=== PATIENT | female | born 1955 | race Caucasian/White ===

== ENCOUNTER 2024-08-13 08:30 | Outpatient (CLI) | payer MEDICARE, SELFPAY ==
--- NOTE | ~2024-08-13 | US_ITS ---
EXAMINATION: US arterial duplex LE DATE: 08/13/2024 09:26 INDICATION: Peripheral vascular disease TECHNIQUE: Grayscale ultrasound images without and with compression and Doppler ultrasound images of the bilateral lower extremity veins were obtained. COMPARISON: None. FINDINGS: Peak systolic velocity (cm/sec) ; waveform Right lower extremity External iliac artery: 115; triphasic Common femoral artery: 213; triphasic Profunda femoral artery: 175; biphasic Superficial femoral artery: 188; biphasic Popliteal artery: 106; biphasic Anterior tibial artery: 77; biphasic Posterior tibial artery: 77; triphasic Peroneal artery: 46; triphasic Dorsalis pedis: 73; biphasic Peak systolic velocity (cm/sec) ; waveform Left lower extremity External iliac artery: 140; triphasic Common femoral artery: 186; triphasic Profunda femoral artery: 141; biphasic Superficial femoral artery: 136; triphasic Popliteal artery: 130; biphasic Anterior tibial artery: 22; biphasic Posterior tibial artery: 86; biphasic Peroneal artery: 30; biphasic Dorsalis pedis: 83; biphasic IMPRESSION: Elevated peak systolic velocity within the bilateral common femoral arteries, without an altered wave form. Triphasic waveforms throughout the thighs with biphasic waveforms in the bilateral lower extremities Reviewed, dictated and finalized at location A. IMPRESSION: Elevated peak systolic velocity within the bilateral common femoral arteries, w ithout an altered waveform. Triphasic waveforms throughout the thighs with biphasic waveforms in the bilate ral lower extremities
--- OUTSIDE RECORDS SUMMARY | 2024-08-13 08:37 | XMS_ITS | Data Portability ---
Author Organization [facility] Infusion Resource, Main Office Address [address] [place] [address] Assessment No assessment recorded. Plan of Treatment Reminders Order Date Submit Date Provider Last Modified By Organization Details Last Modified Time Details Appointments None recorded. Lab vitamin D, 25-hydroxy, total, serum 2024 025 [facility], [address] [place], [address], 5 02:15:25 vitamin B12, serum 2024 025 [facility], [address] [place], [address], 5 02:15:21 magnesium, serum or plasma 2024 025 [facility], [address] [place], [address], 5 02:15:18 lipid panel, serum 2024 025 [facility], [address] [place], [address], 5 02:15:16 CMP, serum or plasma 2024 025 [facility], [address] [place], [address], 5 02:15:19 CBC w/ auto diff 2024 025 [facility], [address] [place], [address], 5 02:15:20 TSH, serum or plasma 2024 025 [facility], [address] [place], [address], 5 02:15:24 T4, free, serum 2024 025 [facility], [address] [place], [address], 5 02:15:22 vitamin D, 25-hydroxy, total, serum [email or web address] [place] [address] Outpatient Lab, [address] [place], [address], 4 10:41:22 magnesium, serum or plasma 2023 [facility], [address] [place], [address], 4 12:17:18 vitamin B12, serum 2023 024 [facility], [address] [place], [address], 4 13:19:04 CBC w/ auto diff 2023 024 [facility], [address] [place], [address], 4 11:46:17 CMP, serum or plasma 2023 024 [facility], [address] [place], [address], 4 12:17:13 lipid panel, serum 2023 024 [facility], [address] [place], [address], 4 12:17:16 TSH, serum or plasma 2023 [facility], [address] [place], [address], 4 12:46:15 T4, free, serum 2023 [facility], [address] [place], [address], 4 12:36:32 ESR (erythrocyt e sedimentati on rate), blood 2023 [facility], [address] [place], [address], 4 11:45:41 vitamin D, 25-hydroxy, total, serum [email or web address] [place] [address] Outpatient Lab, [address] [place], [address], 4 09:40:26 magnesium, serum or plasma 2023 [facility], [address] [place], [address], 4 13:30:59 vitamin B12, serum 2023 [facility], [address] [place], [address], 4 12:39:46 CBC w/ auto diff 2023 [facility], [address] [place], [address], 4 11:17:14 CMP, serum or plasma 2023 [facility], [address] [place], [address], 4 13:30:50 lipid panel, serum 2023 024 [facility], [address] [place], [address], 4 13:30:55 TSH, serum or plasma 2023 024 [facility], [address] [place], [address], 4 14:49:38 T4, free, serum 2023 024 [facility], [address] [place], [address], 4 13:43:11 vitamin D, 25-hydroxy, total, serum [id number] [place] [address] Outpatient Lab, [address] [place], [address], 3 17:49:12 vitamin B12, serum 2022 023 [facility], [address] [place], [address], 3 12:07:50 magnesium, serum or plasma 2022 023 [facility], [address] [place], [address], 3 10:23:01 lipid panel, serum 2022 023 [facility], [address] [place], [address], 3 10:22:41 CMP, serum or plasma 2022 023 [facility], [address] [place], [address], 3 10:22:51 CBC w/ auto diff 2022 023 [facility], [address] [place], [address], 3 10:05:39 TSH, serum or plasma 2022 023 [facility], [address] [place] [address], [address], 3 11:02:15 T4, free, serum 2022 023 [facility], [address] [place] [address], [address], 3 10:42:42 vitamin B12, serum [email or web address] Out[facility] Lab, [address] [place] [address], [address], 3 15:32:53 magnesium, serum or plasma [id number] [facility] [address] [facility], [address] [place] [address], [address], 3 15:32:53 vitamin D, 25-hydroxy, total, serum [id number] [facility], [address] [place] [address], [address], 3 15:32:53 lipid panel, serum 2022 023 [email or web address] [facility] Out[facility] Lab, [address] [place], [address], 3 15:21:53 CMP, serum or plasma [id number] [facility], [address] [place] [address], [address], 3 15:32:53 Referral None recorded. Procedures None recorded. Surgeries None recorded. Imaging None recorded. Medication Orders None recorded. Patient TargetsNo targets recorded. Patient Instructions Encounter Date Encounter Id Patient Instructions Last Modified By Organization Details Last Modified Time 06/06/2022 [id number] Follow-up hypertension -hyperlipidemia-JS D -osteopenia. Clinically stable. Will check blood work consisting of a CMP, lipid,B12, Magnesium vitamin-D level. Recheck back in six months. [email or web address] Not available 06/06/2022 11:27:02 12/05/2022 [id number] Follow-up hypertension, hyperlipidemia, GERD as well as obesity class two. Clinically stable overall is doing well. Has had some intermittent pain and discomfort in the right jones area. This sounds more like muscular cramping. Does take the rosuvastatin. Has also been doing some stretching exercises which may be an aggravating factor. Otherwise been doing well. Will check blood work consisting of CBC, CMP, lipid, thyroid,B12, Magnesium and vitamin-D level. Instruct the patient to try to take some magnesium supplementation to see if there is any improvement. Continue on current medications recheck back in six months.FDA recommendations of a influenza, RSV, COVID, pneumococcal immunizations strongly advised. Portions of the record may have been created with voice recognition software. Occasional wrong-word or [id number]-[id number] substitutions may have occurred due to the inherent limitations of voice recognition software. Read the chart carefully and recognize, using context, where substitutions have occurred. Next Appt: 6 Months Approximate Date: 06/03/2023 Not available 12/05/2022 11:03:26 06/05/2023 [id number] Essential hypertension, hyperlipidemia, obesity class two, piriformis syndrome and GERD all clinically stable. Will check blood work consisting of CBC, CMP, lipid, thyroid, sed rate, B12, magnesium and vitamin-D. Is due for a colonoscopy. Will set up for physical therapy as well. Follow-up in six months Needs a follow-up colonoscopy for colon polyp Set up with physical therapy for lower back pain and possible piriformis syndrome Next Appt: 6 Months Approximate Date: 12/02/2023 Portions of the record may have been created with voice recognition software. Occasional wrong-word or vjprg-[id number] substitutions may have occurred due to the inherent limitations of voice recognition software. Read the chart carefully and recognize, using context, where substitutions have occurred. [email or web address] Not available 06/05/2023 11:29:17 12/10/2023 [id number] dementia rating scale-2* [email or web address] Not available 12/10/2023 11:37:19 alcohol misuse* [email or web address] Not available 12/10/2023 11:50:17 depression screening* [email or web address] Not available 12/10/2023 11:50:17 multi-dimensiona l health assessment questionnaire* [email or web address] Not available 12/10/2023 11:32:27 Personalized a [facility] Plan and Screening Recommendations Advance Directives - Do you have one? No Not interested at this time Advance Directives - Do we have your advance directive on file in your health record? Primary Prevention/Interven tion (prevents or decreases the chance of common diseases from occurring) Smoking Risk: Non Smoker Alcohol Misuse Screening: Negative Weight: Overweight try to lose 10% of your body weight Physical activity: Need more exercise/physical activity Nutrition: Average Fall Risk (screened today): Low Vaccines Pneumococcal: No further needed Influenza: Your next one in the fall of this year Chronic Disease Risks Stroke: Intermediate Risk Active diagnosis, Continue current treatment plan Heart Attack: Intermediate Risk Active diagnosis, Continue current treatment plan Clogging of the Arteries: Intermediate Risk Active diagnosis, Continue current treatment plan Diabetes: Low Risk I have no recommendations Secondary Prevention/Interven tion (detects treatable diseases before they may cause symptoms, disability, or ) Breast Cancer Screening with mammogram: up to date Cervical/Uterine/Ov greg Cancer Screening: Osteoporosis Screening: Recommended today Date Screening Last Performed: Colon Cancer Screening: Colonoscopy Date Screening Last Performed: ___ Eye Disease Screening: Your next exam in: goes as needed Dementia Risk: Low I have no recommendations Depression Screening: Negative I have no recommendations [email or web address] Not available 12/10/2023 11:39:26 Medicare wellnes s evaluation risk assessment stable. Follow-up for hypertension, hyperlipidemia, GERD as well as obesity class two. All clinically stable. Will check blood work consisting of CBC, CMP, lipid, thyroid and vitamin-D level. Does need a bone density scan. Also be due for Prevnar 20 on next visit. Will continue on current medications and follow-up in six months. Additional Orders - Directives - Recommendations 1. Bone density scan Follow Up: 6 Months Approximate Date: 06/07/2024 Portions of the record may have been created with voice recognition software. Occasional wrong-word or gpprt-s-mfft substitutions may have occurred due to the inherent limitations of voice recognition software. Read the chart carefully and recognize, using context, where substitutions have occurred. Not available 12/10/2023 11:18:16 06/09/2024 [id number] Follow-up essent ial hypertension, hyperlipidemia, osteoporosis, obesity class two and GERD all clinically stable. Check blood work consisting of CBC, CMP, lipid, thyroid, vitamin-D level, B12 and magnesium level. Will also recheck blood pressure in a couple weeks since it is marginally elevated. Continue on current Rx follow-up in six months Additional Orders - Directives - Recommendations 1. Recheck blood pressure in approximately two weeks Follow Up: 6 Months Approximate Date: 12/06/2024 Portions of record are template driven. When necessary additional context will be provided. Additionally some portions have been created with voice recognition software. Occasional wrong-word or adzyj-p-webd substitutions may have occurred due to the inherent limitations of voice recognition software. Read the chart carefully and recognize, using context, where substitutions may have occurred. Created: Brad Olson M.D. 06.09.2024 09:58 AM Not available 06/09/2024 10:58:16 Reason for Referral None Reported. Results Created Date Observation Date Name Description Value Unit Range Abnormal Flag Note LastModifiedBy Organization Detail LastModifiedTime 07/02/1907/01/2022 COMPR EHENS TALIB METAB OLIC PANEL sodium 139 mmol/ L 137-[address] [facility] (Lab) [address] [place], [address], 07/01/2022 12:30:05 07/02/19 23 07/01/2022 COMPR EHENS TALIB METAB OLIC PANEL potassium 4.3 mmol/ L 3.5-5. [address] [facility] (Lab) [address] [place], [address], 07/01/2022 12:30:05 07/02/19 23 07/01/2022 COMPR EHENS TALIB METAB OLIC PANEL chloride 103 mmol/ L 98-[address] [facility] (Lab) [address] [place], [address], 07/01/2022 12:30:05 07/02/19 23 07/01/2022 COMPR EHENS TALIB METAB OLIC PANEL carbon dioxide 27 mmol/ L 22-[address] [facility] (Lab) [address] [place], [address], 07/01/2022 12:30:05 07/02/19 23 07/01/2022 COMPR EHENS TALIB METAB OLIC PANEL anion gap 13.3 mmol/ L 14-22 low Not Available [facility] (Lab) [address] [place], [address], 07/01/2022 12:30:05 07/02/19 23 07/01/2022 COMPR EHENS TALIB METAB OLIC PANEL glucose 94 mg/dL 70-[address] [facility] (Lab) [address] [place], [address], 07/01/2022 12:30:05 07/02/19 23 07/01/2022 COMPR EHENS TALIB METAB OLIC PANEL BUN 18 mg/dL 8-[address] [facility] (Lab) [address] [place], [address], 07/01/2022 12:30:05 07/02/19 23 07/01/2022 COMPR EHENS TALIB METAB OLIC PANEL creatinine 0.81 mg/dL 0.66-1 .[address] [facility] (Lab) [address] [place], [address], 07/01/2022 12:30:05 07/02/19 23 07/01/2022 COMPR EHENS TALIB METAB OLIC PANEL GFR >60 Refer ence Range : [place] ge GFR Healt hy Adult : >60 mL/mi n/1.7 3 m2 Chron ic Kidne y Disea se: 15-60 mL/mi n/1.7 3 m2 Kidne y Failu re: <15/m L/min /1.73 m2 www.n iddk. nih.g ov The MDRD study equat ion has not been valid ated in child teresita <18 years of age; pregn ant women ; the elder ly >85 years of age; or in some racia l or ethni c subgr oups, such as Hispa nics. Outsi de the valid ated leann eters , estim ated GFR is less accur ate, requi ring clini angelica judgm ent on a case- by-ca se basis . Clini angelica inter preta tion for other races and ages must be made by the clini luzmaria. The MDRD study equat ion has not been valid ated for the evalu ation of serum creat inine relat ed to nutri eusebio l statu s or medic ation usage . For perso ns <18 years of age, a pedia tric GFR calcu lator is avail able on the [facility] websi te: [email or web address] :[email or web address] rg/pr ofess ional s/kdo qi/gf r_cal culat or Not Available [facility] (Lab) [address] [place], [address], 07/01/2022 12:30:05 07/02/19 23 07/01/2022 COMPR EHENS TALIB METAB OLIC PANEL alkaline phosphatase 76 U/L 38-126 Not Available [facility] (Lab) [address] [place], [address], 07/01/2022 12:30:05 07/02/19 23 07/01/2022 COMPR EHENS TALIB METAB OLIC PANEL alanine aminotransfe rase 24 U/L 0-35 Not Available [facility] (Lab) [address] [place], [address], 07/01/2022 12:30:05 07/02/19 23 07/01/2022 COMPR EHENS TALIB METAB OLIC PANEL aspartate aminotransfe rase 30 U/L 15-37 Not Available [facility] (Lab) [address] [place], [address], 07/01/2022 12:30:05 07/02/19 23 07/01/2022 COMPR EHENS TALIB METAB OLIC PANEL bilirubin, total 0.60 mg/dL 0.20-1 .[address] [facility] (Lab) [address] [place], [address], 07/01/2022 12:30:05 07/02/19 23 07/01/2022 COMPR EHENS TALIB METAB OLIC PANEL calcium 9.5 mg/dL 8.4-10 .[address] [facility] (Lab) [address] [place], [address], 07/01/2022 12:30:05 07/02/19 23 07/01/2022 COMPR EHENS TALIB METAB OLIC PANEL total protein 7.2 g/dL 6.3-8. [address] [facility] (Lab) [address] [place], [address], 07/01/2022 12:30:05 07/02/19 23 07/01/2022 COMPR EHENS TALIB METAB OLIC PANEL albumin 4.3 g/dL 3.0-4. [address] [facility] (Lab) [address] [place], [address], 07/01/2022 12:30:05 07/02/19 23 07/01/2022 COMPR EHENS TALIB METAB OLIC PANEL globulin 2.9 g/dL 2.6-4. [address] [facility] (Lab) [address] [place], [address], 07/01/2022 12:30:05 07/02/19 23 07/01/2022 COMPR EHENS TALIB METAB OLIC PANEL A/G ratio 1.5 ratio 1.0-2. [address] [facility] (Lab) [address] [place], [address], 07/01/2022 12:30:05 07/02/19 23 07/01/2022 MAGNE SIUM magnesium 1.9 mg/dL 1.6-2. [address] [facility] (Lab) [address] [place], [address], 07/01/2022 12:30:07 07/02/19 23 07/01/2022 VITAM IN D 25-HY DROXY [id number] 33.6 NG/mL 30-100 Vitam in D Statu s: Defic ient: <20 ng/mL Insuf ficie nt: 20-29 ng/mL Suffi cient : 30-10 0 ng/mL Not Available [facility] (Lab) [address] [place], [address], 07/01/2022 12:44:37 07/02/19 23 07/01/2022 VITAM IN B12 (JEANNETTE KEREN ) vb12 395 pg/mL 239-[address] [facility] (Lab) [address] [place], [address], 07/01/2022 13:28:33 12/10/19 23 12/09/2022 CBC/C OMPLE TE BLD COUNT W/DIF F white blood cells 5.5 x10'3 /uL 4.2-10 .[address] [facility] (Lab) [address] [place], [address], 12/09/2022 10:05:39 12/10/19 23 12/09/2022 CBC/C OMPLE TE BLD COUNT W/DIF F red blood cells 4.25 x10'6 /uL 3.80-5 .[address] [facility] (Lab) [address] [place], [address], 12/09/2022 10:05:39 12/10/19 23 12/09/2022 CBC/C OMPLE TE BLD COUNT W/DIF F hemoglobin 12.8 g/dL 12.0-1 5.[address] [facility] (Lab) [address] [place], [address], 12/09/2022 10:05:39 12/10/1912/09/2022 CBC/C OMPLE TE BLD COUNT W/DIF F hematocrit 39.6 % 35.7-4 5.[address] [facility] (Lab) [address] [place], [address], 12/09/2022 10:05:39 12/10/1912/09/2022 CBC/C OMPLE TE BLD COUNT W/DIF F mean red cell volume 93.2 fL 82.0-9 9.[address] [facility] (Lab) [address] [place], [address], 12/09/2022 10:05:39 12/10/1912/09/2022 CBC/C OMPLE TE BLD COUNT W/DIF F mean red cell hemoglobin 30.1 pg 27.0-3 3.[address] [facility] (Lab) [address] [place], [address], 12/09/2022 10:05:39 12/10/1912/09/2022 CBC/C OMPLE TE BLD COUNT W/DIF F mean RBC HGB concentratio n 32.3 g/dL 31.0-3 6.[address] [facility] (Lab) [address] [place], [address], 12/09/2022 10:05:39 12/10/1912/09/2022 CBC/C OMPLE TE BLD COUNT W/DIF F red cell distribution width 13.5 % 11.8-1 5.[address] [facility] (Lab) [address] [place], [address], 12/09/2022 10:05:39 12/10/19 23 12/09/2022 CBC/C OMPLE TE BLD COUNT W/DIF F platelets 341 x10'3 /uL 150-40 0 Not Available [facility] (Lab) [address] [place], [address], 12/09/2022 10:05:39 12/10/1912/09/2022 CBC/C OMPLE TE BLD COUNT W/DIF F mean platelet volume 10.2 fL 9.0-12 .4 Not Available [facility] (Lab) [address] [place], [address], 12/09/2022 10:05:39 12/10/1912/09/2022 CBC/C OMPLE TE BLD COUNT W/DIF F neutrophils 60.9 % 39.0-7 2.[address] [facility] (Lab) [address] [place], [address], 12/09/2022 10:05:39 12/10/1912/09/2022 CBC/C OMPLE TE BLD COUNT W/DIF F lymphocytes 29.6 % 16.0-4 7.0 Not Available [facility] (Lab) [address] [place], [address], 12/09/2022 10:05:39 12/10/1912/09/2022 CBC/C OMPLE TE BLD COUNT W/DIF F monocytes 6.4 % 5.0-12 .0 Not Available [facility] (Lab) [address] [place], [address], 12/09/2022 10:05:39 12/10/1912/09/2022 CBC/C OMPLE TE BLD COUNT W/DIF F eosinophils 1.6 % 1.0-7. [address] [facility] (Lab) [address] [place], [address], 12/09/2022 10:05:39 12/10/1912/09/2022 CBC/C OMPLE TE BLD COUNT W/DIF F basophils 1.3 % 0.0-2. [address] [facility] (Lab) [address] [place], [address], 12/09/2022 10:05:39 12/10/1912/09/2022 CBC/C OMPLE TE BLD COUNT W/DIF F immature granulocytes 0.2 % 0.00-0 .[address] [facility] (Lab) [address] [place], [address], 12/09/2022 10:05:39 12/10/1912/09/2022 CBC/C OMPLE TE BLD COUNT W/DIF F neutrophils, absolute count 3.35 x10'3 /uL 1.5-8. [address] [facility] (Lab) [address] [place], [address], 12/09/2022 10:05:39 12/10/1912/09/2022 CBC/C OMPLE TE BLD COUNT W/DIF F lymphocytes, absolute count 1.63 x10'3 /uL 1.07-3 .43 Not Available [facility] (Lab) [address] [place], [address], 12/09/2022 10:05:39 12/10/1912/09/2022 CBC/C OMPLE TE BLD COUNT W/DIF F monocytes, absolute count 0.35 x10'3 /uL 0.29-0 .[address] [facility] (Lab) [address] [place], [address], 12/09/2022 10:05:39 12/10/1912/09/2022 CBC/C OMPLE TE BLD COUNT W/DIF F eosinophils, absolute count 0.09 x10'3 /uL 0.02-0 .[address] [facility] (Lab) [address] [place], [address], 12/09/2022 10:05:39 12/10/1912/09/2022 CBC/C OMPLE TE BLD COUNT W/DIF F basophils, absolute count 0.07 x10'3 /uL 0.01-0 [address] [facility] (Lab) [address] [place], [address], 12/09/2022 10:05:39 12/10/19 23 12/09/2022 CBC/C OMPLE TE BLD COUNT W/DIF F immature granulocytes ,absolute 0.01 x10'3 /uL 0.00-0 .[address] [facility] (Lab) [address] [place], [address], 12/09/2022 10:05:39 12/10/1912/09/2022 CBC/C OMPLE TE BLD COUNT W/DIF F nucleated red blood cells 0.0 % -0 Not Available [facility] (Lab) [address] [place], [address], 12/09/2022 10:05:39 12/10/1912/09/2022 CBC/C OMPLE TE BLD COUNT W/DIF F NRBC# 0.00 x10'3 /uL Not Available [facility] (Lab) [address] [place], [address], 12/09/2022 10:05:39 12/10/1912/09/2022 LIPID PANEL cholesterol 199 mg/dL 140-19 9 NIH AIDE NSUS RECOM MENDA TION FOR ALEXIS STERO L: ADULT CHILD LOW RISK: <200 <170 BORDE RLINE : <200- 239 ----- HIGH RISK: >240 >[address] [facility] (Lab) [address] [place], [address], 12/09/2022 10:22:41 12/10/1912/09/2022 LIPID PANEL triglyceride s 141 mg/dL 0-150 NIH AIDE NSUS REPOR T RECOM MENDA TION FOR TRIGL YCERI XIMENA: ADULT CHILD LOW RISK: <150 ----- BODER LINE: 150-1 99 ----- HIGH RISK: >200 ----- Not Available [facility] (Lab) [address] [place], [address], 12/09/2022 10:22:41 12/10/19 23 12/09/2022 LIPID PANEL HDL cholesterol 45 mg/dL 40- Not Available [facility] (Lab) [address] [place], [address], 12/09/2022 10:22:41 12/10/1912/09/2022 LIPID PANEL LDL cholesterol, calculated 126 mg/dL 0-130 NIH AIDE NSUS REPOR T RECOM MENDA TIONS FOR LDL: ADULT CHILD LOW RISK <130 <110 (OPTI MAL LDL) <100 ----- BORDE RLINE : 130-1 59 ----- HIGH RISK: >160 >130 A TRIGL YCERI DE RESUL T >400 INVAL IDATE S THE CALCU LATIO N FOR LDL FRACT IONAT ION - THE LDL RESUL T WILL NOT BE REPOR TAMI. Not Available [facility] (Lab) [address] [place], [address], 12/09/2022 10:22:41 12/10/1912/09/2022 COMPR EHENS TALIB METAB OLIC PANEL sodium 139 mmol/ L 137-14 [address] [facility] (Lab) [address] [place], [address], 12/09/2022 10:22:51 12/10/19 23 12/09/2022 COMPR EHENS TALIB METAB OLIC PANEL potassium 4.8 mmol/ L 3.5-5. [address] [facility] (Lab) [address] [place], [address], 12/09/2022 10:22:51 12/10/19 23 12/09/2022 COMPR EHENS TALIB METAB OLIC PANEL chloride 103 mmol/ L 98-[address] [facility] (Lab) [address] [place], [address], 12/09/2022 10:22:51 12/10/19 23 12/09/2022 COMPR EHENS TALIB METAB OLIC PANEL carbon dioxide 28 mmol/ L 22-[address] [facility] (Lab) [address] [place], [address], 12/09/2022 10:22:51 12/10/19 23 12/09/2022 COMPR EHENS TALIB METAB OLIC PANEL anion gap 12.8 mmol/ L 14-22 low Not Available [facility] (Lab) [address] [place], [address], 12/09/2022 10:22:51 12/10/1912/09/2022 COMPR EHENS TALIB METAB OLIC PANEL glucose 93 mg/dL 70-[address] [facility] (Lab) [address] [place], [address], 12/09/2022 10:22:51 12/10/19 23 12/09/2022 COMPR EHENS TALIB METAB OLIC PANEL BUN 18 mg/dL 8-[address] [facility] (Lab) [address] [place], [address], 12/09/2022 10:22:51 12/10/19 23 12/09/2022 COMPR EHENS TALIB METAB OLIC PANEL creatinine 0.87 mg/dL 0.66-1 .[address] [facility] (Lab) [address] [place], [address], 12/09/2022 10:22:51 12/10/19 23 12/09/2022 COMPR EHENS TALIB METAB OLIC PANEL GFR >60 Refer ence Range : [place] ge GFR Healt hy Adult : >60 mL/mi n/1.7 3 m2 Chron ic Kidne y Disea se: 15-60 mL/mi n/1.7 3 m2 Kidne y Failu re: <15/m L/min /1.73 m2 www.n iddk. nih.g ov The MDRD study equat ion has not been valid ated in child teresita <18 years of age; pregn ant women ; the elder ly >85 years of age; or in some racia l or ethni c subgr oups, such as Hisdayday nics. Outsi de the valid ated leann eters , estim ated GFR is less accur ate, requi ring clini angelica judgm ent on a case- by-ca se basis . Clini angelica inter preta tion for other races and ages must be made by the clini luzmaria. The MDRD study equat ion has not been valid ated for the evalu ation of serum creat inine relat ed to nutri eusebio l statu s or medic ation usage . For perso ns <18 years of age, a pedia tric GFR calcu lator is avail able on the [facility] websi te: [email or web address] :[email or web address] rg/pr ofess ional s/kdo qi/gf r_cal culat or Not Available [facility] (Lab) [address] [place], [address], 12/09/2022 10:22:51 12/10/1912/09/2022 COMPR EHENS TALIB METAB OLIC PANEL alkaline phosphatase 86 U/L 38-126 Not Available [facility] (Lab) [address] [place], [address], 12/09/2022 10:22:51 12/10/19 23 12/09/2022 COMPR EHENS TALIB METAB OLIC PANEL alanine aminotransfe rase 29 U/L 0-35 Not Available [facility] (Lab) [address] [place], [address], 12/09/2022 10:22:51 12/10/19 23 12/09/2022 COMPR EHENS TALIB METAB OLIC PANEL aspartate aminotransfe rase 31 U/L 15-37 Not Available [facility] (Lab) [address] [place], [address], 12/09/2022 10:22:51 12/10/1912/09/2022 COMPR EHENS TALIB METAB OLIC PANEL bilirubin, total 0.70 mg/dL 0.20-1 .[address] [facility] (Lab) [address] [place], [address], 12/09/2022 10:22:51 12/10/1912/09/2022 COMPR EHENS TALIB METAB OLIC PANEL calcium 10.0 mg/dL 8.4-10 .[address] [facility] (Lab) [address] [place], [address], 12/09/2022 10:22:51 12/10/1912/09/2022 COMPR EHENS TALIB METAB OLIC PANEL total protein 7.1 g/dL 6.3-8. [address] [facility] (Lab) [address] [place], [address], 12/09/2022 10:22:51 12/10/1912/09/2022 COMPR EHENS TALIB METAB OLIC PANEL albumin 4.4 g/dL 3.0-4. [address] [facility] (Lab) [address] [place], [address], 12/09/2022 10:22:51 12/10/1912/09/2022 COMPR EHENS TALIB METAB OLIC PANEL globulin 2.7 g/dL 2.6-4. [address] [facility] (Lab) [address] [place], [address], 12/09/2022 10:22:51 12/10/1912/09/2022 COMPR EHENS TALIB METAB OLIC PANEL A/G ratio 1.6 ratio 1.0-2. [address] [facility] (Lab) [address] [place], [address], 12/09/2022 10:22:51 12/10/1912/09/2022 MAGNE SIUM magnesium 2.0 mg/dL 1.6-2. [address] [facility] (Lab) [address] [place], [address], 12/09/2022 10:23:01 12/10/19 23 12/09/2022 T4 FREE free T4 1.15 NG/dL 0.78-2 .[address] [facility] (Lab) [address] [place], [address], 12/09/2022 10:42:41 12/10/1912/09/2022 TSH thyroid-stim ulating hormone 1.200 uIU/m L 0.465- 4.[address] [facility] (Lab) [address] [place], [address], 12/09/2022 11:02:14 12/10/1912/09/2022 VITAM IN D 25-HY DROXY [id number] 47.5 NG/mL 30-100 Vitam in D Statu s: Defic ient: <20 ng/mL Insuf ficie nt: 20-29 ng/mL Suffi cient : 30-10 0 ng/mL Not Available [facility] (Lab) [address] [place], [address], 12/09/2022 11:37:45 12/10/1912/09/2022 VITAM IN B12 (JEANNETTE KEREN ) vb12 465 pg/mL 239-[address] [facility] (Lab) [address] [place], [address], 12/09/2022 12:07:50 06/09/19 24 06/09/2023 CBC/C OMPLE TE BLD COUNT W/DIF F white blood cells 6.6 x10'3 /uL 4.2-10 .[address] [facility] (Lab) [address] [place], [address], 06/09/2023 11:17:14 06/09/19 24 06/09/2023 CBC/C OMPLE TE BLD COUNT W/DIF F red blood cells 4.31 x10'6 /uL 3.80-5 .[address] [facility] (Lab) [address] [place], [address], 06/09/2023 11:17:14 06/09/19 24 06/09/2023 CBC/C OMPLE TE BLD COUNT W/DIF F hemoglobin 12.7 g/dL 12.0-1 5.[address] [facility] (Lab) [address] [place], [address], 06/09/2023 11:17:14 06/09/19 24 06/09/2023 CBC/C OMPLE TE BLD COUNT W/DIF F hematocrit 39.7 % 35.7-4 5.[address] [facility] (Lab) [address] [place], [address], 06/09/2023 11:17:14 06/09/19 24 06/09/2023 CBC/C OMPLE TE BLD COUNT W/DIF F mean red cell volume 92.1 fL 82.0-9 9.[address] [facility] (Lab) [address] [place], [address], 06/09/2023 11:17:14 06/09/19 24 06/09/2023 CBC/C OMPLE TE BLD COUNT W/DIF F mean red cell hemoglobin 29.5 pg 27.0-3 3.[address] [facility] (Lab) [address] [place], [address], 06/09/2023 11:17:14 06/09/19 24 06/09/2023 CBC/C OMPLE TE BLD COUNT W/DIF F mean RBC HGB concentratio n 32.0 g/dL 31.0-3 6.[address] [facility] (Lab) [address] [place], [address], 06/09/2023 11:17:14 06/09/19 24 06/09/2023 CBC/C OMPLE TE BLD COUNT W/DIF F red cell distribution width 13.9 % 11.8-1 5.[address] [facility] (Lab) [address] [facility] [place], [address], 06/09/2023 11:17:14 06/09/19 24 06/09/2023 CBC/C OMPLE TE BLD COUNT W/DIF F platelets 365 x10'3 /uL 150-40 [address] [facility] (Lab) [address] [place], [address], 06/09/2023 11:17:14 06/09/19 24 06/09/2023 CBC/C OMPLE TE BLD COUNT W/DIF F mean platelet volume 10.3 fL 9.0-12 .[address] [facility] (Lab) [address] [place], [address], 06/09/2023 11:17:14 06/09/19 24 06/09/2023 CBC/C OMPLE TE BLD COUNT W/DIF F neutrophils 63.0 % 39.0-7 2.[address] [facility] (Lab) [address] [place], [address], 06/09/2023 11:17:14 06/09/19 24 06/09/2023 CBC/C OMPLE TE BLD COUNT W/DIF F lymphocytes 27.7 % 16.0-4 7.[address] [facility] (Lab) [address] [place], [address], 06/09/2023 11:17:14 06/09/19 24 06/09/2023 CBC/C OMPLE TE BLD COUNT W/DIF F monocytes 5.9 % 5.0-12 .[address] [facility] (Lab) [address] [place], [address], 06/09/2023 11:17:14 06/09/19 24 06/09/2023 CBC/C OMPLE TE BLD COUNT W/DIF F eosinophils 2.3 % 1.0-7. [address] [facility] (Lab) [address] [facility] [place], [address], 06/09/2023 11:17:14 06/09/19 24 06/09/2023 CBC/C OMPLE TE BLD COUNT W/DIF F basophils 0.8 % 0.0-2. [address] [facility] (Lab) [address] [facility] [place], [address], 06/09/2023 11:17:14 06/09/19 24 06/09/2023 CBC/C OMPLE TE BLD COUNT W/DIF F immature granulocytes 0.3 % 0.00-0 .[address] [facility] (Lab) [address] [place], [address], 06/09/2023 11:17:14 06/09/19 24 06/09/2023 CBC/C OMPLE TE BLD COUNT W/DIF F neutrophils, absolute count 4.15 x10'3 /uL 1.5-8. [address] [facility] (Lab) [address] [place], [address], 06/09/2023 11:17:14 06/09/19 24 06/09/2023 CBC/C OMPLE TE BLD COUNT W/DIF F lymphocytes, absolute count 1.82 x10'3 /uL 1.07-3 .[address] [facility] (Lab) [address] [place], [address], 06/09/2023 11:17:14 06/09/19 24 06/09/2023 CBC/C OMPLE TE BLD COUNT W/DIF F monocytes, absolute count 0.39 x10'3 /uL 0.29-0 .[address] [facility] (Lab) [address] [place], [address], 06/09/2023 11:17:14 06/09/19 24 06/09/2023 CBC/C OMPLE TE BLD COUNT W/DIF F eosinophils, absolute count 0.15 x10'3 /uL 0.02-0 .[address] [facility] (Lab) [address] [place], [address], 06/09/2023 11:17:14 06/09/19 24 06/09/2023 CBC/C OMPLE TE BLD COUNT W/DIF F basophils, absolute count 0.05 x10'3 /uL 0.01-0 .[address] [facility] (Lab) [address] [place], [address], 06/09/2023 11:17:14 06/09/19 24 06/09/2023 CBC/C OMPLE TE BLD COUNT W/DIF F immature granulocytes ,absolute 0.02 x10'3 /uL 0.00-0 .[address] [facility] (Lab) [address] [place], [address], 06/09/2023 11:17:14 06/09/19 24 06/09/2023 CBC/C OMPLE TE BLD COUNT W/DIF F nucleated red blood cells 0.0 % -0 Not Available [facility] (Lab) [address] [place], [address], 06/09/2023 11:17:14 06/09/19 24 06/09/2023 CBC/C OMPLE TE BLD COUNT W/DIF F NRBC# 0.00 x10'3 /uL Not Available [facility] (Lab) [address] [place], [address], 06/09/2023 11:17:14 06/09/19 24 06/09/2023 SEDIM ENTAT ION RATE erythrocyte sedimentatio n rate 14 mm/HR 0-20 Not Available [facility] (Lab) [address] [place], [address], 06/09/2023 11:45:41 06/09/19 24 06/09/2023 VITAM IN B12 (JEANNETTE KEREN ) vb12 629 pg/mL 239-[address] [facility] (Lab) [address] [place], [address], 06/09/2023 12:39:46 06/09/19 24 06/09/2023 VITAM IN D 25-HY DROXY vd25oh 43.4 NG/mL 30-100 Vitam in D Statu s: Defic ient: <20 ng/mL Insuf ficie nt: 20-29 ng/mL Suffi cient : 30-10 0 ng/mL Not Available [facility] (Lab) [address] [place], [address], 06/09/2023 12:40:03 06/09/19 24 06/09/2023 COMPR EHENS TALIB METAB OLIC PANEL sodium 136 mmol/ L 137-14 5 low Not Available [facility] (Lab) [address] [place], [address], 06/09/2023 13:30:50 06/09/19 24 06/09/2023 COMPR EHENS TALIB METAB OLIC PANEL potassium 4.9 mmol/ L 3.5-5. [address] [facility] (Lab) [address] [place], [address], 06/09/2023 13:30:50 06/09/19 24 06/09/2023 COMPR EHENS TALIB METAB OLIC PANEL chloride 104 mmol/ L 98-[address] [facility] (Lab) [address] [place], [address], 06/09/2023 13:30:50 06/09/19 24 06/09/2023 COMPR EHENS TALIB METAB OLIC PANEL carbon dioxide 28 mmol/ L 22-[address] [facility] (Lab) [address] [place], [address], 06/09/2023 13:30:50 06/09/19 24 06/09/2023 COMPR EHENS TALIB METAB OLIC PANEL anion gap 8.9 mmol/ L 14-22 low Not Available [facility] (Lab) [address] [place], [address], 06/09/2023 13:30:50 06/09/19 24 06/09/2023 COMPR EHENS TALIB METAB OLIC PANEL glucose 93 mg/dL 70-[address] [facility] (Lab) [address] [place], [address], 06/09/2023 13:30:50 06/09/19 24 06/09/2023 COMPR EHENS TALIB METAB OLIC PANEL BUN 20 mg/dL 8-19 high Not Available [facility] (Lab) [address] [place], [address], 06/09/2023 13:30:50 06/09/19 24 06/09/2023 COMPR EHENS TALIB METAB OLIC PANEL creatinine 0.91 mg/dL 0.66-1 .[address] [facility] (Lab) [address] [place], [address], 06/09/2023 13:30:50 06/09/19 24 06/09/2023 COMPR EHENS TALIB METAB OLIC PANEL GFR >60 Refer ence Range : [place] ge GFR Healt hy Adult : >60 mL/mi n/1.7 3 m2 Chron ic Kidne y Disea se: 15-60 mL/mi n/1.7 3 m2 Kidne y Failu re: <15/m L/min /1.73 m2 www.n iddk. nih.g ov The MDRD study equat ion has not been valid ated in child teresita <18 years of age; pregn ant women ; the elder ly >85 years of age; or in some racia l or ethni c subgr oups, such as Hispa nics. Outsi de the valid ated leann eters , estim ated GFR is less accur ate, requi ring clini angelica judgm ent on a case- by-ca se basis . Clini angelica inter preta tion for other races and ages must be made by the clini luzmaria. The MDRD study equat ion has not been valid ated for the evalu ation of serum creat inine relat ed to nutri eusebio l statu s or medic ation usage . For perso ns <18 years of age, a pedia tric GFR calcu lator is avail able on the [facility] websi te: https :[email or web address] wells.vannessa ring/pr ofess ional s/kdo qi/gf r_cal culat or Not Available [facility] (Lab) [address] [place], [address], 06/09/2023 13:30:50 06/09/19 24 06/09/2023 COMPR EHENS TALIB METAB OLIC PANEL alkaline phosphatase 111 U/L 38-126 Not Available [facility] (Lab) [address] [place], [address], 06/09/2023 13:30:50 06/09/19 24 06/09/2023 COMPR EHENS TALIB METAB OLIC PANEL alanine aminotransfe rase 32 U/L 0-35 Not Available [facility] (Lab) [address] [place], [address], 06/09/2023 13:30:50 06/09/19 24 06/09/2023 COMPR EHENS TALIB METAB OLIC PANEL aspartate aminotransfe rase 33 U/L 15-37 Not Available [facility] (Lab) [address] [place], [address], 06/09/2023 13:30:50 06/09/19 24 06/09/2023 COMPR EHENS TALIB METAB OLIC PANEL bilirubin, total 0.60 mg/dL 0.20-1 .[address] [facility] (Lab) [address] [place], [address], 06/09/2023 13:30:50 06/09/19 24 06/09/2023 COMPR EHENS TALIB METAB OLIC PANEL calcium 9.7 mg/dL 8.4-10 .[address] [facility] (Lab) [address] [place], [address], 06/09/2023 13:30:50 06/09/19 24 06/09/2023 COMPR EHENS TALIB METAB OLIC PANEL total protein 7.0 g/dL 6.3-8. [address] [facility] (Lab) [address] [place], [address], 06/09/2023 13:30:50 06/09/19 24 06/09/2023 COMPR EHENS TALIB METAB OLIC PANEL albumin 4.4 g/dL 3.0-4. [address] [facility] (Lab) [address] [place], [address], 06/09/2023 13:30:50 06/09/19 24 06/09/2023 COMPR EHENS TALIB METAB OLIC PANEL globulin 2.6 g/dL 2.6-4. [address] [facility] (Lab) [address] [place], [address], 06/09/2023 13:30:50 06/09/19 24 06/09/2023 COMPR EHENS TALIB METAB OLIC PANEL A/G ratio 1.7 ratio 1.0-2. [address] [facility] (Lab) [address] [place], [address], 06/09/2023 13:30:50 06/09/19 24 06/09/2023 LIPID PANEL cholesterol 190 mg/dL 140-19 9 NIH AIDE NSUS RECOM MENDA TION FOR ALEXIS STERO L: ADULT CHILD LOW RISK: <200 <170 BORDE RLINE : <200- 239 ----- HIGH RISK: >240 >[address] [facility] (Lab) [address] [place], [address], 06/09/2023 13:30:55 06/09/19 24 06/09/2023 LIPID PANEL triglyceride s 175 mg/dL 0-150 high NIH AIDE NSUS REPOR T RECOM MENDA TION FOR TRIGL YCERI XIMENA: ADULT CHILD LOW RISK: <150 ----- BODER LINE: 150-1 99 ----- HIGH RISK: >200 ----- Not Available [facility] (Lab) [address] [place], [address], 06/09/2023 13:30:55 06/09/19 24 06/09/2023 LIPID PANEL HDL cholesterol 51 mg/dL 40- Not Available [facility] (Lab) [address] [place], [address], 06/09/2023 13:30:55 06/09/19 24 06/09/2023 LIPID PANEL LDL cholesterol, calculated 104 mg/dL 0-130 NIH AIDE NSUS REPOR T RECOM MENDA TIONS FOR LDL: ADULT CHILD LOW RISK <130 <110 (OPTI MAL LDL) <100 ----- BORDE RLINE : 130-1 59 ----- HIGH RISK: >160 >130 A TRIGL YCERI DE RESUL T >400 INVAL IDATE S THE CALCU LATIO N FOR LDL FRACT IONAT ION - THE LDL RESUL T WILL NOT BE REPOR TAMI. Not Available [facility] (Lab) [address] [place], [address], 06/09/2023 13:30:55 06/09/19 24 06/09/2023 MAGNE SIUM magnesium 1.7 mg/dL 1.6-2. [address] [facility] (Lab) [address] [place], [address], 06/09/2023 13:30:59 06/09/19 24 06/09/2023 T4 FREE free T4 1.05 NG/dL 0.78-2 .19 Not Available [facility] (Lab) [address] [place], [address], 06/09/2023 13:43:11 06/09/19 24 06/09/2023 TSH thyroid-stim ulating hormone 1.610 uIU/m L 0.465- 4.680 Not Available [facility] (Lab) [address] [place], [address], 06/09/2023 14:49:38 12/11/1912/11/2023 CBC/C OMPLE TE BLD COUNT W/DIF F white blood cells 7.3 x10'3 /uL 4.2-10 .[address] [facility] (Lab) [address] [place], [address], 12/11/2023 11:46:17 12/11/1912/11/2023 CBC/C OMPLE TE BLD COUNT W/DIF F red blood cells 4.37 x10'6 /uL 3.80-5 .[address] [facility] (Lab) [address] [place], [address], 12/11/2023 11:46:17 12/11/1912/11/2023 CBC/C OMPLE TE BLD COUNT W/DIF F hemoglobin 13.3 g/dL 12.0-1 5.[address] [facility] (Lab) [address] [place], [address], 12/11/2023 11:46:17 12/11/1912/11/2023 CBC/C OMPLE TE BLD COUNT W/DIF F hematocrit 40.6 % 35.7-4 5.[address] [facility] (Lab) [address] [place], [address], 12/11/2023 11:46:17 12/11/1912/11/2023 CBC/C OMPLE TE BLD COUNT W/DIF F mean red cell volume 92.9 fL 82.0-9 9.[address] [facility] (Lab) [address] [place], [address], 12/11/2023 11:46:17 12/11/1912/11/2023 CBC/C OMPLE TE BLD COUNT W/DIF F mean red cell hemoglobin 30.4 pg 27.0-3 3.[address] [facility] (Lab) [address] [place], [address], 12/11/2023 11:46:17 12/11/1912/11/2023 CBC/C OMPLE TE BLD COUNT W/DIF F mean RBC HGB concentratio n 32.8 g/dL 31.0-3 6.0 Not Available [facility] (Lab) [address] [place], [address], 12/11/2023 11:46:17 12/11/1912/11/2023 CBC/C OMPLE TE BLD COUNT W/DIF F red cell distribution width 13.1 % 11.8-1 5.[address] [facility] (Lab) [address] [place], [address], 12/11/2023 11:46:17 12/11/1912/11/2023 CBC/C OMPLE TE BLD COUNT W/DIF F platelets 411 x10'3 /uL 150-40 0 high Not Available [facility] (Lab) [address] [place], [address], 12/11/2023 11:46:17 12/11/1912/11/2023 CBC/C OMPLE TE BLD COUNT W/DIF F mean platelet volume 10.9 fL 9.0-12 .[address] [facility] (Lab) [address] [place], [address], 12/11/2023 11:46:17 12/11/1912/11/2023 CBC/C OMPLE TE BLD COUNT W/DIF F neutrophils 69.4 % 39.0-7 2.0 Not Available [facility] (Lab) [address] [place], [address], 12/11/2023 11:46:17 12/11/1912/11/2023 CBC/C OMPLE TE BLD COUNT W/DIF F lymphocytes 21.6 % 16.0-4 7.0 Not Available [facility] (Lab) [address] [place], [address], 12/11/2023 11:46:17 12/11/1912/11/2023 CBC/C OMPLE TE BLD COUNT W/DIF F monocytes 6.3 % 5.0-12 .0 Not Available [facility] (Lab) [address] [place], [address], 12/11/2023 11:46:17 12/11/1912/11/2023 CBC/C OMPLE TE BLD COUNT W/DIF F eosinophils 1.6 % 1.0-7. 0 Not Available [facility] (Lab) [address] [place], [address], 12/11/2023 11:46:17 12/11/1912/11/2023 CBC/C OMPLE TE BLD COUNT W/DIF F basophils 0.8 % 0.0-2. 0 Not Available [facility] (Lab) [address] [place], [address], 12/11/2023 11:46:17 12/11/1912/11/2023 CBC/C OMPLE TE BLD COUNT W/DIF F immature granulocytes 0.3 % 0.00-0 .50 Not Available [facility] (Lab) [address] [place], [address], 12/11/2023 11:46:17 12/11/19 24 12/11/2023 CBC/C OMPLE TE BLD COUNT W/DIF F neutrophils, absolute count 5.05 x10'3 /uL 1.5-8. [address] [facility] (Lab) [address] [place], [address], 12/11/2023 11:46:17 12/11/1912/11/2023 CBC/C OMPLE TE BLD COUNT W/DIF F lymphocytes, absolute count 1.57 x10'3 /uL 1.07-3 .[address] [facility] (Lab) [address] [place], [address], 12/11/2023 11:46:17 12/11/1912/11/2023 CBC/C OMPLE TE BLD COUNT W/DIF F monocytes, absolute count 0.46 x10'3 /uL 0.29-0 .[address] [facility] (Lab) [address] [place], [address], 12/11/2023 11:46:17 12/11/1912/11/2023 CBC/C OMPLE TE BLD COUNT W/DIF F eosinophils, absolute count 0.12 x10'3 /uL 0.02-0 .[address] [facility] (Lab) [address] [place], [address], 12/11/2023 11:46:17 12/11/1912/11/2023 CBC/C OMPLE TE BLD COUNT W/DIF F basophils, absolute count 0.06 x10'3 /uL 0.01-0 .[address] [facility] (Lab) [address] [place], [address], 12/11/2023 11:46:17 12/11/19 24 12/11/2023 CBC/C OMPLE TE BLD COUNT W/DIF F immature granulocytes ,absolute 0.02 x10'3 /uL 0.00-0 .[address] [facility] (Lab) [address] [place], [address], 12/11/2023 11:46:17 12/11/19 24 12/11/2023 CBC/C OMPLE TE BLD COUNT W/DIF F nucleated red blood cells 0.0 % -0 Not Available [facility] (Lab) [address] [place], [address], 12/11/2023 11:46:17 12/11/1912/11/2023 CBC/C OMPLE TE BLD COUNT W/DIF F NRBC# 0.00 x10'3 /uL Not Available [facility] (Lab) [address] [place], [address], 12/11/2023 11:46:17 12/11/1912/11/2023 COMPR EHENS TALIB METAB OLIC PANEL sodium 136 mmol/ L 137-14 5 low Not Available [facility] (Lab) [address] [place], [address], 12/11/2023 12:17:13 12/11/1912/11/2023 COMPR EHENS TALIB METAB OLIC PANEL potassium 4.7 mmol/ L 3.5-5. [address] [facility] (Lab) [address] [place], [address], 12/11/2023 12:17:13 12/11/1912/11/2023 COMPR EHENS TALIB METAB OLIC PANEL chloride 102 mmol/ L 98-[address] [facility] (Lab) [address] [place], [address], 12/11/2023 12:17:13 12/11/19 24 12/11/2023 COMPR EHENS TALIB METAB OLIC PANEL carbon dioxide 28 mmol/ L 22-[address] [facility] (Lab) [address] [place], [address], 12/11/2023 12:17:13 12/11/19 24 12/11/2023 COMPR EHENS TALIB METAB OLIC PANEL anion gap 10.7 mmol/ L 14-22 low Not Available [facility] (Lab) [address] [place], [address], 12/11/2023 12:17:13 12/11/19 24 12/11/2023 COMPR EHENS TALIB METAB OLIC PANEL glucose 99 mg/dL 70-[address] [facility] (Lab) [address] [place], [address], 12/11/2023 12:17:13 12/11/1912/11/2023 COMPR EHENS TALIB METAB OLIC PANEL BUN 22 mg/dL 8-19 high Not Available [facility] (Lab) [address] [place], [address], 12/11/2023 12:17:13 12/11/19 24 12/11/2023 COMPR EHENS TALIB METAB OLIC PANEL creatinine 1.00 mg/dL 0.66-1 .[address] [facility] (Lab) [address] [place], [address], 12/11/2023 12:17:13 12/11/1912/11/2023 COMPR EHENS TALIB METAB OLIC PANEL GFR 55 Refer ence Range : [place] ge GFR Healt hy Adult : >60 mL/mi n/1.7 3 m2 Chron ic Kidne y Disea se: 15-60 mL/mi n/1.7 3 m2 Kidne y Failu re: <15/m L/min /1.73 m2 www.n iddk. nih.g ov The MDRD study equat ion has not been valid ated in child teresita <18 years of age; pregn ant women ; the elder ly >85 years of age; or in some racia l or ethni c subgr oups, such as Hispa nics. Outsi de the valid ated leann eters , estim ated GFR is less accur ate, requi ring clini angelica judgm ent on a case- by-ca se basis . Clini angelica inter preta tion for other races and ages must be made by the clini luzmaria. The MDRD study equat ion has not been valid ated for the evalu ation of serum creat inine relat ed to nutri eusebio l statu s or medic ation usage . For perso ns <18 years of age, a pedia tric GFR calcu lator is avail able on the [facility] websi te: https ://ww w.kid russell.o rg/pr ofess ional s/kdo qi/gf r_cal culat or Not Available [facility] (Lab) [address] [place], [address], 12/11/2023 12:17:13 12/11/1912/11/2023 COMPR EHENS TALIB METAB OLIC PANEL alkaline phosphatase 86 U/L 38-126 Not Available [facility] (Lab) [address] [place], [address], 12/11/2023 12:17:13 12/11/1912/11/2023 COMPR EHENS TALIB METAB OLIC PANEL alanine aminotransfe rase 21 U/L 0-35 Not Available [facility] (Lab) [address] [place], [address], 12/11/2023 12:17:13 12/11/1912/11/2023 COMPR EHENS TALIB METAB OLIC PANEL aspartate aminotransfe rase 26 U/L 15-37 Not Available [facility] (Lab) [address] [place], [address], 12/11/2023 12:17:13 12/11/19 24 12/11/2023 COMPR EHENS TALIB METAB OLIC PANEL bilirubin, total 0.70 mg/dL 0.20-1 .[address] [facility] (Lab) [address] [place], [address], 12/11/2023 12:17:13 12/11/19 24 12/11/2023 COMPR EHENS TALIB METAB OLIC PANEL calcium 10.2 mg/dL 8.4-10 .2 Not Available [facility] (Lab) [address] [place], [address], 12/11/2023 12:17:13 12/11/19 24 12/11/2023 COMPR EHENS TALIB METAB OLIC PANEL total protein 6.9 g/dL 6.3-8. [address] [facility] (Lab) [address] [place], [address], 12/11/2023 12:17:13 12/11/1912/11/2023 COMPR EHENS TALIB METAB OLIC PANEL albumin 4.4 g/dL 3.0-4. 4 Not Available [facility] (Lab) [address] [place], [address], 12/11/2023 12:17:13 12/11/19 24 12/11/2023 COMPR EHENS TALIB METAB OLIC PANEL globulin 2.5 g/dL 2.6-4. 2 low Not Available [facility] (Lab) [address] [place], [address], 12/11/2023 12:17:13 12/11/1912/11/2023 COMPR EHENS TALIB METAB OLIC PANEL A/G ratio 1.8 ratio 1.0-2. [address] [facility] (Lab) [address] [place], [address], 12/11/2023 12:17:13 12/11/1912/11/2023 LIPID PANEL cholesterol 190 mg/dL 140-19 9 [facility] AIDE NSUS RECOM MENDA TION FOR ALEXIS STERO L: ADULT CHILD LOW RISK: <200 <170 BORDE RLINE : <200- 239 ----- HIGH RISK: >240 >200 Not Available [facility] (Lab) [address] [place], [address], 12/11/2023 12:17:16 12/11/1912/11/2023 LIPID PANEL triglyceride s 197 mg/dL 0-150 high NIH AIDE NSUS REPOR T RECOM MENDA TION FOR TRIGL YCERI XIMENA: ADULT CHILD LOW RISK: <150 ----- BODER LINE: 150-1 99 ----- HIGH RISK: >200 ----- Not Available [facility] (Lab) [address] [place], [address], 12/11/2023 12:17:16 12/11/1912/11/2023 LIPID PANEL HDL cholesterol 42 mg/dL 40- Not Available [facility] (Lab) [address] [place], [address], 12/11/2023 12:17:16 12/11/1912/11/2023 LIPID PANEL LDL cholesterol, calculated 109 mg/dL 0-130 [facility] AIDE NSUS REPOR T RECOM MENDA TIONS FOR LDL: ADULT CHILD LOW RISK <130 <110 (OPTI MAL LDL) <100 ----- NEVILLEDE RLINE : 130-1 59 ----- HIGH RISK: >160 >130 A TRIGL YCERI DE RESUL T >400 INVAL IDATE S THE CALCU LATIO N FOR LDL FRACT IONAT ION - THE LDL RESUL T WILL NOT BE REPOR TAMI. Not Available [facility] (Lab) [address] [place], [address], 12/11/2023 12:17:16 12/11/1912/11/2023 MAGNE SIUM magnesium 2.0 mg/dL 1.6-2. [address] [facility] (Lab) [address] [place], [address], 12/11/2023 12:17:18 12/11/19 24 12/11/2023 T4 FREE free T4 1.29 NG/dL 0.78-2 .[address] [facility] (Lab) [address] [place], [address], 12/11/2023 12:36:31 12/11/1912/11/2023 VITAM IN D 25-HY DROXY vd25oh 32.9 NG/mL 30-100 Vitam in D Statu s: Defic ient: <20 ng/mL Insuf ficie nt: 20-29 ng/mL Suffi cient : 30-10 0 ng/mL Not Available [facility] (Lab) [address] [place], [address], 12/11/2023 12:42:04 12/11/1912/11/2023 TSH thyroid-stim ulating hormone 1.190 uIU/m L 0.465- 4.[address] [facility] (Lab) [address] [place], [address], 12/11/2023 12:46:15 12/11/1912/11/2023 VITAM IN B12 (JEANNETTE KEREN ) vb12 817 pg/mL 239-[address] [facility] (Lab) [address] [place], [address], 12/11/2023 13:19:03 06/16/19 25 06/16/2024 LIPID PANEL , STAND BLAYNE cholesterol, total 194 mg/dL <200 normal Not Available [facility] [address], [address], 06/16/2024 02:15:16 06/16/19 25 06/16/2024 LIPID PANEL , STAND BLAYNE HDL cholesterol 51 mg/dL > or = 50 normal Not Available [facility] [address], [address], 06/16/2024 02:15:16 06/16/19 25 06/16/2024 LIPID PANEL , STAND BLAYNE triglyceride s 180 mg/dL <150 high Not Available [facility] [address] [place], [address], 06/16/2024 02:15:16 06/16/19 25 06/16/2024 LIPID PANEL , STAND BLAYNE LDL-choleste rol 113 mg/dL _(angelica c) high Refer ence range : <100 Polly able range <100 mg/dL for prima ry preve ntion ; <70 mg/dL for patie nts with CHD or diabe tic patie nts with > or = 2 CHD risk facto rs. LDL-C is now calcu lated using the Marianne n-Hop kins calcu dago n, which is a valid ated novel metho d provi ding vic r accur acy than the Fried german equat ion in the estim ation of LDL-C . Marianne kelley SS et al. VITOR. 2013; 310(1 9): 2061- 2068 (http ://ed ucati on.PeerJ. com/f aq/FA Q164) Not Available [facility] [address] [place], [address], 06/16/2024 02:15:16 06/16/19 25 06/16/2024 LIPID PANEL , STAND BLAYNE chol/HDLC ratio 3.8 (calc ) <5.0 normal Not Available [facility] [address] [place], [address], 06/16/2024 02:15:16 06/16/1906/16/2024 LIPID PANEL , STAND BLAYNE non HDL cholesterol 143 mg/dL _(angelica c) <130 high For patie nts with diabe shaila plus 1 major ASCVD risk facto r, treat ing to a non-H DL-C goal of <100 mg/dL (LDL- C of <70 mg/dL ) is karl alexo n. Not Available [facility] [address] [place], [address], 06/16/2024 02:15:16 06/16/19 25 06/16/2024 MAGNE SIUM magnesium 2.0 mg/dL 1.5-2. 5 normal Not Available [address], [address], 06/16/2024 02:15:18 06/16/1906/16/2024 COMPR EHENS TALIB METAB OLIC PANEL glucose 101 mg/dL 65-99 high Fasti ng refer ence inter chao For someo ne witho ut known diabe shaila, a gluco se value betwe en 100 and 125 mg/dL is consi stent with predi abete s and shoul d be confi rmed with a follo w-up test. Not Available [address], [address], 06/16/2024 02:15:19 06/16/1906/16/2024 COMPR EHENS TALIB METAB OLIC PANEL urea nitrogen (BUN) 22 mg/dL 7-25 normal Not Available [address], [address], 06/16/2024 02:15:19 06/16/19 25 06/16/2024 COMPR EHENS TALIB METAB OLIC PANEL creatinine 0.92 mg/dL 0.60-1 .00 normal Not Available [address], [address], 06/16/2024 02:15:19 06/16/1906/16/2024 COMPR EHENS TALIB METAB OLIC PANEL eGFR 67 mL/mi n/1.7 3m2 > or = 60 normal Not Available [address], [address], 06/16/2024 02:15:19 06/16/1906/16/2024 COMPR EHENS TALIB METAB OLIC PANEL BUN/creatini ne ratio SEE NOTE: (calc ) 6-22 Not Repor tami: BUN and Creat inine are withi n refer ence range . Not Available [facility] [address], [address], 06/16/2024 02:15:19 06/16/19 25 06/16/2024 COMPR EHENS TALIB METAB OLIC PANEL sodium 137 mmol/ L 135-14 6 normal Not Available [address], [address], 06/16/2024 02:15:19 06/16/19 25 06/16/2024 COMPR EHENS TALIB METAB OLIC PANEL potassium 4.2 mmol/ L 3.5-5. 3 normal Not Available [address], [address], 06/16/2024 02:15:19 06/16/1906/16/2024 COMPR EHENS TALIB METAB OLIC PANEL chloride 100 mmol/ L 98-110 normal Not Available [address], [address], 06/16/2024 02:15:19 06/16/19 25 06/16/2024 COMPR EHENS TALIB METAB OLIC PANEL carbon dioxide 28 mmol/ L 20-32 normal Not Available [address], [address], 06/16/2024 02:15:19 06/16/19 25 06/16/2024 COMPR EHENS TALIB METAB OLIC PANEL calcium 9.8 mg/dL 8.6-10 .4 normal Not Available [address], [address], 06/16/2024 02:15:19 06/16/1906/16/2024 COMPR EHENS TALIB METAB OLIC PANEL protein, total 7.2 g/dL 6.1-8. 1 normal Not Available [address], [address], 06/16/2024 02:15:19 06/16/19 25 06/16/2024 COMPR EHENS TALIB METAB OLIC PANEL albumin 4.7 g/dL 3.6-5. 1 normal Not Available [facility] [address] [place], [address], 06/16/2024 02:15:19 06/16/1906/16/2024 COMPR EHENS TALIB METAB OLIC PANEL globulin 2.5 g/dL_ (calc ) 1.9-3. 7 normal Not Available [address] [address] [place], [address], 06/16/2024 02:15:19 06/16/1906/16/2024 COMPR EHENS TALIB METAB OLIC PANEL albumin/glob ulin ratio 1.9 (calc ) 1.0-2. 5 normal Not Available [address] [address] [place], [address], 06/16/2024 02:15:19 06/16/1906/16/2024 COMPR EHENS TALIB METAB OLIC PANEL bilirubin, total 0.6 mg/dL 0.2-1. 2 normal Not Available [address] [address] [place], [address], 06/16/2024 02:15:19 06/16/1906/16/2024 COMPR EHENS TALIB METAB OLIC PANEL alkaline phosphatase 56 U/L 37-153 normal Not Available [address] [address] [place], [address], 06/16/2024 02:15:19 06/16/1906/16/2024 COMPR EHENS TALIB METAB OLIC PANEL AST 20 U/L 10-35 normal Not Available [address] [address] [place], [address], 06/16/2024 02:15:19 06/16/1906/16/2024 COMPR EHENS TALIB METAB OLIC PANEL ALT 19 U/L 6-29 normal Not Available [address] [address] [place], [address], 06/16/2024 02:15:19 06/16/19 25 06/16/2024 CBC (INCL UDES DIFF/ PLT) white blood cell count 6.9 thous and/u L 3.8-10 .8 normal Not Available [address], [address], 06/16/2024 02:15:20 06/16/19 25 06/16/2024 CBC (INCL UDES DIFF/ PLT) red blood cell count 4.55 liliana on/uL 3.80-5 .10 normal Not Available [address], [address], 06/16/2024 02:15:20 06/16/19 25 06/16/2024 CBC (INCL UDES DIFF/ PLT) hemoglobin 13.4 g/dL 11.7-1 5.5 normal Not Available [address], [address], 06/16/2024 02:15:20 06/16/19 25 06/16/2024 CBC (INCL UDES DIFF/ PLT) hematocrit 41.8 % 35.0-4 5.0 normal Not Available [address], [address], 06/16/2024 02:15:20 06/16/19 25 06/16/2024 CBC (INCL UDES DIFF/ PLT) MCV 91.9 fL 80.0-1 00.0 normal Not Available [address], [address], 06/16/2024 02:15:20 06/16/19 25 06/16/2024 CBC (INCL UDES DIFF/ PLT) MCH 29.5 pg 27.0-3 3.0 normal Not Available [address], [address], 06/16/2024 02:15:20 06/16/19 25 06/16/2024 CBC (INCL UDES DIFF/ PLT) MCHC 32.1 g/dL 32.0-3 6.0 normal For adult s, a sligh t decre ase in the calcu lated MCHC value (in the range of 30 to 32 g/dL) is most likel y not clini chino signi kofi t; yuri er, it shoul d be inter prete d with cauti on in corre [facility] n with other red cell leann eters and the patie nt's clini angelica condi tion. Not Available [address], [address], 06/16/2024 02:15:20 06/16/1906/16/2024 CBC (INCL UDES DIFF/ PLT) RDW 13.2 % 11.0-1 5.0 normal Not Available [address], [address], 06/16/2024 02:15:20 06/16/19 25 06/16/2024 CBC (INCL UDES DIFF/ PLT) platelet count 388 thous and/u L 140-40 0 normal Not Available [address], [address], 06/16/2024 02:15:20 06/16/19 25 06/16/2024 CBC (INCL UDES DIFF/ PLT) MPV 10.0 fL 7.5-12 .5 normal Not Available [address], [address], 06/16/2024 02:15:20 06/16/1906/16/2024 CBC (INCL UDES DIFF/ PLT) absolute neutrophils 4637 cells /uL 1500-7 800 normal Not Available [address], [address], 06/16/2024 02:15:20 06/16/19 25 06/16/2024 CBC (INCL UDES DIFF/ PLT) absolute lymphocytes 1704 cells /uL 850-39 00 normal Not Available [facility] [address], [address], 06/16/2024 02:15:20 06/16/19 25 06/16/2024 CBC (INCL UDES DIFF/ PLT) absolute monocytes 366 cells /uL 200-95 0 normal Not Available [address], [address], 06/16/2024 02:15:20 06/16/19 25 06/16/2024 CBC (INCL UDES DIFF/ PLT) absolute eosinophils 131 cells /uL 15-500 normal Not Available [facility] [address], [address], 06/16/2024 02:15:20 06/16/19 25 06/16/2024 CBC (INCL UDES DIFF/ PLT) absolute basophils 62 cells /uL 0-200 normal Not Available [address], [address], 06/16/2024 02:15:20 06/16/19 25 06/16/2024 CBC (INCL UDES DIFF/ PLT) neutrophils 67.2 % normal Not Available [address], [address], 06/16/2024 02:15:20 06/16/19 25 06/16/2024 CBC (INCL UDES DIFF/ PLT) lymphocytes 24.7 % normal Not Available [address], [address], 06/16/2024 02:15:20 06/16/1906/16/2024 CBC (INCL UDES DIFF/ PLT) monocytes 5.3 % normal Not Available [address], [address], 06/16/2024 02:15:20 06/16/19 25 06/16/2024 CBC (INCL UDES DIFF/ PLT) eosinophils 1.9 % normal Not Available [facility] [address] [place], [address], 06/16/2024 02:15:20 06/16/1906/16/2024 CBC (INCL UDES DIFF/ PLT) basophils 0.9 % normal Not Available [address], [address], 06/16/2024 02:15:20 06/16/1906/16/2024 VITAM IN B12 vitamin B12 694 pg/mL 200-11 00 normal Not Available [address], [address], 06/16/2024 02:15:21 06/16/1906/16/2024 T4, FREE T4, free 1.3 NG/dL 0.8-1. 8 normal Not Available [address], [address], 06/16/2024 02:15:22 06/16/1906/16/2024 TSH TSH 1.51 mIU/L 0.40-4 .50 normal Not Available [address], [address], 06/16/2024 02:15:23 06/16/1906/16/2024 VITAM IN D,25- OH,TO EZ,I A vitamin D,25-oh,tota l,ia 37 NG/mL 30-100 normal Vitam in D Statu s 25-OH Vitam in D: Defic iency : <20 ng/mL Insuf ficie ncy: 20 - 29 ng/mL Optim al: > or = 30 ng/mL For 25-OH Vitam in D testi ng on patie nts on D2-pepper pplem entat ion and patie nts for whom quant itati on of D2 and D3 fract ions is requi red, the [facility] e[facility](TM ) 25-OH VIT D, (D2,D 3), LC/MS /MS is recom britany d: order code 77363 (millie ents >2yrs ). See Note 1 Note 1 For addit ional infor maren jacobo refer to http: //vikas Fu stDia gnost ics.c om/fa q/FAQ 199 (This link is being provi ded for infor jorge lima/ educa eusebio hamilton purpo ses only. ) Not Available [address] [address] [address], [place], [address], 06/16/2024 02:15:25 09/17/19 23 09/16/2022 scree alfredo breas t becky, bilat [facility] [address] [place] [address] Alvino abarca Name: HI PRYOR Access ion #: [id number] Sex: F : 1954 2 Dictat ed By: Tayler connolly Attend ing Physic kizzy: ANDREE OLSON Orderi Physic kizzy: TYRON DASILVA Exam Date: 2022 06:36 AM Exam Name: MG SCRN BREAST BECKY BILAT Admitt ing Diagno sis(es ): CLINIC AL HISTOR Y: Screen ing exam, no breast compla ints. No person al histor y of breast cancer or prior breast interv ention . Family histor y of breast cancer in her sister at age 50 and in her daught er at age 42. COMPAR BRITTANI: Prior mammog stefani dated 022, 08/08/19 21, and 020. TECHNI QUE: Digita l breast tomosy nthesi s was perfor med. Synthe sized CC and MLO images were create d from the tomosy nthesi s images . CAD was utiliz ed. FINDIN GS: There are scatte red fibrog landul ar densit ies (categ ory B). Benign -appea ring calcif icatio ns. No suspic ious mass, bella ectura l distor tion, or suspic ious microc alcifi cation s are seen. The axilla e, skin and nipple s are normal . IMPRES SANTINO: Benign findin gs. RECOMM ENDATI ONS: In the absenc e of new breast compla ints, annual screen ing is recomm ended. The patien t will be notifi ed of the mammog jong result s per hospit al protoc ol. BI-RAD S CATEGO RY: 2: Benign . Electr onical ly Signed by: Tayler connolly at 2022 08:29: 15 AM Page [email or web address] [facility] (Imaging) [address] [place], [address], 09/16/2022 10:18:12 11/19/19 24 11/18/2023 screevens dillardas rima becky, bilat [facility] [place] [address] [place] [address] [phone] Alvino abarca Name: HI PRYOR Access ion #: [id number] Sex: F : 1954 7 Locati on: RAD Attend ing Physic kizzy: ANDREE OLSON CE Orderi ng Physic kizzy: ANDREE OLSON CE Exam Date: 024 12:57 PM Exam Name: MG PA[place] BREAST BECKY BILAT Admitt ing Diagno sis(es ): MAMMOG JONG REPORT - FINAL EXAM: MG [place] BREAST BECKY BILAT HISTOR Y: screen ing mammog kamryn 68-yea r-old female with no curren t breast compla ints. The patien t has a family histor y of breast cancer includ ing a sister at age 5050 years old and daught er at age 2242 years old. COMPAR BRITTANI: 2022, 2021 TECHNI QUE: Bilate ral CC and MLO views of the breast s were perfor med. Digita l Mammog jong images were obtain ed. CAD (compu ter assist ed detect ion) was utiliz ed. 3D Digita l breast tomosy nthesi s was perfor med and used in the interp retati on of images . FINDIN GS: There are scatte red areas of fibrog landul ar densit y. Page 1 of 2 [facility] Alvino abarca Name: HI PRYOR Access ion #: [id number] Sex: F : 1954 7 Exam Date: 12:57 PM Exam Name: SCRKei BREAST BECKY BILAT Admitt ing Diagno sis(es ): No new masses , develo ping asymme tries, suspic ious calcif icatio ns, or bella ectura l distor tion are seen. IMPRES SANTINO: BIRADS 1: Assess ment comple te. Negati ve. Recomm end annual screen ing mammog jong. Accord ing to the [employer], yearly mammog stefani are recomm ended starti ng at age 40 and contin uing as long as the woman is in good health . Clinic al Breast Exam should be part of the period ic health exam-a bout every 3 years for women in their 20s and 30s and every year for women 40 and over. Breast self-e xam is an option for women in their 20s. Any breast change noted on the breast self-e xam she would be report ed prompt ly to the [facility] care [facility] er. A negati ve mammog jong report should not discou rage follow -up or biopsy of a clinic ally signif icant findin g and/or abnorm ality. Dense breast tissue may obscur e small neopla sms. This alvino abarca has been entere d into a mammog jong remind er system with a target date for her next mammog kamryn. Create d and electr onical ly signed by: Torres horner MD Signed Date: 11:00 AM (CT) Dictat ed by: Torres horner MD DD: 11:00 AM (CT) DT: 11:00 AM (CT) Page 2 of [email or web address] [place] [address] (Imaging) [address] [place], [address], 11/19/2023 12:22:47 12/22/19 24 12/22/2023 DEXA, [facility]le [facility] [address] [place] [address] [facility] [address] Patiyuni t Name: HI PRYOR Access ion #: [id number] Sex: F : 1954 9 Dictat ed By: Ronald Darby Attend ing Physic kizzy: ANDREE OLSON CE Orderi Physic kizzy: ANDREE OLSON CE Exam Date: 2023 11:17 AM Exam Name: XR DEXA-H IPS PELVIS SPINE Admitt ing Diagno sis(es ): INDICA TION: 68 years old, Female ; SENILE OSTEOP OROSIS . DEXA SCAN: BONE DENSIT Y REPORT : AP SPINE (L1-L4 ) : T Score: -2.6 LEFT HIP TOTAL : T Score: -1.0 RT HIP TOTAL : T Score: -1.3 TOTAL BILAT HIP AVG: T Score: -1.1 IMPRES SANTINO: Osteop orosis lumbar spine. Osteop enia bilate ral hips. ------ ------ ------ ------ ------ ------ ------ ------ ----- *FRAX versio n 3.08. Fractu re probab ility calcul ated for an untrea tami patien t. Fractu re probab ility may be lower if the patien t has receiv ed treatm ent. T-scor e: compar brittani by elijah pendleton ion (DONTE) to a young adult popula priya shoemaker d for sex and ethnic ity (used for postme nopaus al women and men >50 years) and classi fied by WHO criter ia. -1.0: normal <-1.0 to >-2.5: osteop enia Page 1 [facility] [address] [place] [address] Patiyuni t Name: HI PRYOR Access ion #: [id number] Sex: F : 1954 9 Dictat ed By: Ronald Darby Attend ing Physic kizzy: TYRON DASILVA Orderi Physic kizzy: ANDREE OLSON Exam Date: 2023 11:17 AM Exam Name: XR DEXA-H IPS PELVIS SPINE Admitt ing Diagno sis(es ): -2.5: osteop orosis -2.5 plus fragil ity fractu re: severe osteop orosis Z-scor e: compar ed by SD to an age, sex, and ethnic ity popula tion (used for premen opausa l women, men <50 years, and childr en instea d of T-scor e WHO criter ia 4) <-2.0: below expect ed range/ low bone densit y for age, and a cause should be sought Electr onical ly Signed by: Ronald Darby at 2023 11:35: 10 AM Page [email or web address] [facility] (Imaging) [address] [place], [address], 12/22/2023 14:23:24 Result Notes Documentation Provider Name and Address Organization Details Recorded Time Dexa, Axial Skeleton : [facility] [address] [place] [id number] Patient Name: HI PRYOR Sex: F : 1955 Dictated By: Shakir Darby Attending Physician: BRAD OLSON Ordering Physician: BRAD OLSON Exam Date: 12/22/2023 11:17 AM Exam Name: XR DEXA-HIPS PELVIS SPINE Admitting Diagnosis(es): INDICATION: 68 years old, Female; SENILE OSTEOPOROSIS. DEXA SCAN: BONE DENSITY REPORT: AP SPINE (L1-L4) : T Score: -2.6 LEFT HIP TOTAL : T Score: -1.0 RT HIP TOTAL : T Score: -1.3 TOTAL BILAT HIP AVG: T Score: -1.1 IMPRESSION: Osteoporosis lumbar spine. Osteopenia bilateral hips. --- *FRAX version 3.08. Fracture probability calculated for an untreated patient. Fracture probability may be lower if the patient has received treatment. T-score: comparison by standard deviation (SD) to a young adult population, matched for sex and ethnicity (used for postmenopausal women and men >50 years) and classified by WHO criteria. -1.0: normal <-1.0 to >-2.5: osteopenia Page 1 [facility] [address] [place] [address] Patient Name: HI PRYOR Sex: F : 1955 Dictated By: Shakir Darby Attending Physician: TYRON SALINAS Ordering Physician: BRAD OLSON Exam Date: 12/22/2023 11:17 AM Exam Name: XR DEXA-HIPS PELVIS SPINE Admitting Diagnosis(es): -2.5: osteoporosis -2.5 plus fragility fracture: severe osteoporosis Z-score: compared by SD to an age, sex, and ethnicity population (used for premenopausal women, men <50 years, and children instead of T-score WHO criteria 4) <-2.0: below expected range/low bone density for age, and a cause should be sought Page 2 Brad Olson MD [address], [address], [employer] 12/22/2023 14:23:24 Problems Name Problem SNOMED Code Status Onset Date Resolution Date Notes Provider Name and Address Organization Details Recorded Time Gastroesop hageal reflux disease 460614006 Active 2016 Not Available [facility] 3 14:14:03 Hyperlipid emia 85668123 Active 2016 Not Available [facility] 3 14:14:03 Essential hypertensi on 32673229 Active 2016 Carol gil, [employer] 5 11:03:46 Osteopenia 509779457 Active 2022 Brad Olson MD [address] [address], [place], [address] , [facility] 3 11:23:07 Obese class II 9310132074927 05 Active 2022 Brad Olson MD [address], [place], [address] , [facility] 3 10:58:45 Vitamin D deficiency 00215104 Active 2022 Brad Olson MD [address], [address], [place], [address] , [facility] 3 11:03:15 Piriformis syndrome 802256110 Active 2023 Brad Olson MD [address], [address], [place], [address] , [facility] 4 11:28:11 Low back pain 189225492 Active 2023 Lelo gil [facility] 4 11:35:27 History of polyp of colon 567609717 Active 2023 Lelo gil [facility] 4 11:42:07 Senile osteoporos is 37022322 Active 2023 Lelo gil [facility] 4 11:25:28 Peripheral vascular disease 231469003 Active 2024 Lelo gil [facility] 5 11:10:52 Problem Notes None recorded. Procedures Surgical History Date Name Laterality Status Provider Name and Address Organization Details Recorded Time 4 Medicare Wellness CPT Code, subsequent completed Halima Abebe RN [facility] 12/10/2023 11:10:47 Imaging Results None recorded. Procedure Notes None recorded. Medical Equipment None Reported. Allergies Allergen ID Allergen Name Allergen Category Reaction Reaction Severity Criticality Documentation Date Start Date Code Code System Note Provider Name and Address Organization Details Recorded Time 88996 simvastat in medicatio n muscle cramps Not available Not available 05/01/2022 03048 RxNorm Not Available [facility] 3 14:17:24 42343 Lipitor medicatio n muscle cramps Not available Not available 05/01/2022 94715 5 RxNorm Not Available [facility] 3 14:17:24 Medications Name Sig Start Date Stop Date Status Note LastModified by Organization Details LastModified Time lisinopril 20 mg-hydrochl orothiazide 12.5 mg tablet Take 1 tablet by mouth twice daily 2024 active Not Available Not Available Not Avai lable alendronate 70 mg tablet TAKE 1 TABLET BY MOUTH ONCE A WEEK active Not Available Not Available No t Available amlodipine 2.5 mg tablet TAKE 1 TABLET BY MOUTH ONCE DAILY active Not Available Not Available No t Available omeprazole 40 mg capsule,del ayed release TAKE 1 CAPSULE BY MOUTH ONCE DAILY active Not Available Not Available No t Available Aleve 220 mg tablet Take 1 tablet every 12 hours by oral route. active Not Available Not Available No t Available Vitamin D3 10 mcg (400 unit) tablet Take 1 tablet every day by oral route. active Not Available Not Available No t Available cyanocobala min (vit B-12) 500 mcg tablet Take 1 tablet every day by oral route. active Not Available Not Available No t Available Kenalog 10 mg/mL suspension for injection In office injection administe red by the provider 06/[address] [facility]: 0003- [phone]- [phone] Not Available Not Available Not Available cephalexin 500 mg capsule Take 1 capsule every 6 hours by oral route. active Not Available Not Available No t Available simvastatin 20 mg tablet TAKE ONE TABLET BY MOUTH AT BEDTIME active Not Available Not Available No t Available cyanocobala min (vit B-12) 1,000 mcg/mL injection solution Inject 1 mL every week by subcutane ous route. 08/04 completed Not Available Not Available Not Available calcium 160 mg (as calcium carbonate 400 mg) chewable tablet Take 1 tablet every day by oral route. active Not Available Not Available No t Available omeprazole 20 mg capsule,del ayed release TAKE 1 CAPSULE BY MOUTH ONCE DAILY 06/07 completed Not Available Not Available Not Available methylpredn isolone 4 mg tablets in a dose pack TAKE BY MOUTH DIRECTED ON INSIDE OF PACKAGE active Not Available Not Available No t Available ondansetron 4 mg disintegrat ing tablet 06/19 completed Not Available Not Available Not Available Metamucil (sugar) oral powder use daily as directed 06/09 completed Not Available Not Available Not Available Pneumovax-2 3 25 mcg/0.5 mL injection syringe PHARMACIS T ADMINISTE RED IMMUNIZAT ION ADMINISTE RED AT TIME OF DISPENSIN G 09/15 completed Not Available Not Available Not Available rosuvastati n 5 mg tablet Take 1 tablet by mouth once daily 2024 active Not Available Not Available Not Avai lable rosuvastati n 10 mg tablet TAKE 1 TABLET BY MOUTH ONCE DAILY active Not Available Not Available No t Available Multivitami n 50 Plus tablet Take 1 tablet every day by oral route. active Not Available Not Available No t Available Calcium 600 once daily 12/05 completed Not Available Not Available Not Available Vitamin D3 1000 iu daily 12/05 completed Not Available Not Available Not Available lidocaine (PF) 10 mg/mL (1 %) injection solution In office injection administe red by the provider 06/[address] [facility]: [phone]- [phone] Not Available Not Available Not Available peg 3350-electr olytes 236 gram-22.74 gram-6.74 gram-5.86 gram solution TAKE DIRECTED 06/09 completed Not Available Not Available Not Available Adacel (Tdap Adolesn/Gregorio lt)(PF)2 Lf-(2.5-5-3 -5)-5 Lf/0.5 mL IM syringe 09/15 completed Not Available Not Available Not Available Slow-Mag 71.5 mg tablet,ashok yed release Take 1 tablet every day by oral route. active Not Available Not Available No t Available Glucosamine Chondroitin PLUS 375 mg-100 mg-36 mg-54 mg capsule Take 1 capsule every day by oral route. 06/09 completed Not Available Not Available Not Available turmeric 400 mg capsule Take 1 capsule every day by oral route. 06/09 completed Not Available Not Available Not Available Fluzone High-Dose 2019-20 (PF) 180 mcg/0.5 mL intramuscul ar syringe PHARMACIS T ADMINISTE RED IMMUNIZAT ION ADMINISTE RED AT TIME OF DISPENSIN G 09/15 completed Not Available Not Available Not Available Bin[employer] COVID-19 Ag Self Test kit Use as Directed on the Package 06/06 completed Not Available Not Available Not Available Vitals Date Recorded Body height Body mass index (BMI) Body weight Heart rate Body temperature Oxygen saturation Oxygen saturation in Arterial blood by Pulse oximetry Systolic blood pressure Diastolic blood pressure Provider Name and Address Organization Details Last Updated DateTime 4 149.86 cm 39.8 kg/m2 42074.7 g 75 /min 97 [degF] 98 % 98 % 132 mm[Hg] 78 mm[Hg] [facility] 4 11:06:19 Date Recorded Body height Body mass index (BMI) Body weight Heart rate Body temperature Oxygen saturation Oxygen saturation in Arterial blood by Pulse oximetry Systolic blood pressure Diastolic blood pressure Provider Name and Address Organization Details Last Updated DateTime 3 151.13 cm 38.3 kg/m2 24500.3 3 g 99 /min 97 [degF] 94 % 94 % 142 mm[Hg] 78 mm[Hg] [facility] 3 11:14:25 Date Recorded Body height Body mass index (BMI) Body weight Heart rate Body temperature Oxygen saturation Oxygen saturation in Arterial blood by Pulse oximetry Systolic blood pressure Diastolic blood pressure Provider Name and Address Organization Details Last Updated DateTime 5 149.86 cm 39.9 kg/m2 33711.4 9 g 84 /min 97 [degF] 98 % 98 % 160 mm[Hg] 60 mm[Hg] [employer] [facility] 5 10:46:37 Date Recorded Body height Body mass index (BMI) Body weight Heart rate Body temperature Oxygen saturation Oxygen saturation in Arterial blood by Pulse oximetry Systolic blood pressure Diastolic blood pressure Provider Name and Address Organization Details Last Updated DateTime 3 152.4 cm 37.9 kg/m2 57668.9 2 g 95 /min 97 [degF] 96 % 96 % 132 mm[Hg] 78 mm[Hg] [employer] [facility] 3 10:53:24 Date Recorded Body height Body mass index (BMI) Body weight Heart rate Body temperature Oxygen saturation Oxygen saturation in Arterial blood by Pulse oximetry Systolic blood pressure Diastolic blood pressure Provider Name and Address Organization Details Last Updated DateTime 4 149.86 cm 38.8 kg/m2 61191.7 4 g 66 /min 97 [degF] 99 % 99 % 180 mm[Hg] 90 mm[Hg] Carol Delgadillo [place] [facility] [place] [employer] 4 11:09:06 Social History Question Answer Notes LastModified by Organizat ion Details LastModified Time Tobacco Smoking Status Former [facility]oker Not [facility] 14:11:11 Do You Have An Advance Directive? No [id number] Information not available 05/01/2022 Are You Blind Or Do You Have Difficulty Seeing? No MIGRATION.54262 13293 Information not available 05/01/2022 In The 14 Days Before Symptom Onset, Have You Had Close Contact With A Laboratory-confi rmed COVID-19 While That Case Was Ill? No MIGRATION.56746 49955 Information not available 05/01/2022 In The 14 Days Before Symptom Onset, Have You Had Close Contact With A Person Who Is Under Investigation For COVID-19 While That Person Was Ill? No MIGRATION.38057 98024 Information not available 05/01/2022 Are You Deaf Or Do You Have Serious Difficulty Hearing? No MIGRATION.57188 78635 Information not available 05/01/2022 What Type Of Diet Are You Following? REGULAR MIGRATION.03184 19924 Information not available 05/01/2022 Have There Been Any Changes To Your Family Or Social Situation? No MIGRATION.01414 16984 Information not available 05/01/2022 What Is The Fluoride Status Of Your Home? Unknown MIGRATION.62450 98733 Information not available 05/01/2022 When Did You Quit Smoking? 14+yearssincelastci lindy MIGRATION.91311 14004 Information not available 05/01/2022 Are There Any Guns Present In Your Home? No MIGRATION.50742 35870 Information not available 05/01/2022 Do You Use Insect Repellent Routinely? No MIGRATION.31949 93110 Information not available 05/01/2022 Where Do You Live? SingleLevelHouse MIGRATION.72356 89810 Information not available 05/01/2022 Guns Present In The Home? No [email or web address] Information not available 12/10/2023 Are You Able To Care For Yourself? Yes Information not available 12/10/2023 Are You Blind Or Do Yo Have Difficulty Seeing? No [email or web address] Information not available 12/10/2023 Are You Deaf Or Do You Have Serious Difficulty Hearing? No [email or web address] Information not available 12/10/2023 Live Alone Of With Others? Alone [email or web address] Information not available 12/10/2023 Do You Have A Medical Power Of Cream Maker? No MIGRATION.43350 [id number] Information not available 05/01/2022 What Was The Date Of Your Most Recent Tobacco Screening? 12/06/2021 MIGRATION.59526 28697 Information not available 05/01/2022 Do You Have Any Pets? No MIGRATION.31644 21553 Information not available 05/01/2022 Do You Use Your Seat Belt Or Car Seat Routinely? Yes [email or web address] Information not available 12/10/2023 Do You Have Smoke And Carbon Monoxide Detectors In Your Home? Yes MIGRATION.43647 99991 Information not available 05/01/2022 Are You Passively Exposed To Smoke? No MIGRATION.11591 64138 Information not available 05/01/2022 Are There Any Smokers In Your House? No MIGRATION.53414 67036 Information not available 05/01/2022 Do You Use Sunscreen Routinely? No MIGRATION.49092 27397 Information not available 05/01/2022 Have You Recently Traveled Abroad? No MIGRATION.96185 32110 Information not available 05/01/2022 Do You Have Difficulty Walking Or Climbing Stairs? No MIGRATION.45857 00756 Information not available 05/01/2022 Do You Have Any Dietary Restrictions? No MIGRATION.84010 15109 Information not available 05/01/2022 Sex: Unknown Functional Status Question Answer Note LastModified by Organizat ion Details LastModified Time What is your level of alcohol consumption? None MIGRATION.[id number] Information not available 05/01/2022 Do you have transportation difficulties? No MIGRATION.[id number] 026 Information not available 05/01/2022 Are you able to walk? YESWOREST MIGRATION.[id number] 026 Information not available 05/01/2022 Do you have difficulty doing errands alone? No MIGRATION.[id number] 026 Information not available 05/01/2022 Are you able to care for yourself? Yes MIGRATION.[id number] 026 Information not available 05/01/2022 Do you have difficulty dressing or bathing? No MIGRATION.[id number] 026 Information not available 05/01/2022 What is your exercise level? Occasional MIGRATION.[id number] 026 Information not available 05/01/2022 Mental Status Question Answer Note LastModified by Organizat ion Details LastModified Time Do you have difficulty concentrating, remembering or making decisions? No MIGRATION.[id number] Information not available 05/01/2022 Family History Nothing Reported Notes:Mother 75 yea rs old Father 72 years old 2 Brothers 1 Living 3 Sisters 2 Living Mother Hx DM, HTN, Ca of Colon Father Hx Ca of Prostate Brother Hx ASHD (1) Sisters Ca of Breast (1) CAD(1) Medical History Condition Response NERVE DISEASE N BLINDNESS N RHEUMATIC FEVER N KIDNEY STONES N BLADDER PROBLEMS N MRSA N OTHER # 1 N POLIO N LUNG DISEASE/DISORDER N RADIATION / CHEMOTHERAPY N COPD N Other # 2 N BLOOD DISEASES N SURGERY N EAR OR HEARING PROBLEMS N MUMPS N DEPRESSION (INCLUDING POST ) N BOWEL PROBLEMS N STROKE/TIA N ULCERS N BENIGN PROSTATIC HYPERPLASIA N MEASLES N MYOCARDIAL INFARCTION N OBESITY N GERD/NAUSEA Y ANEURYSM N URINARY/BLADDER/KIDNEY PROBLEMS N CORONARY ARTERY DISEASE (CAD) N ADDICTION CONCERNS N Impotence N ENDOMETRIOSIS N USE OF BLOOD THINNERS N SKIN PROBLEMS N GASTROINTESTINAL DISORDER N PERIPHERAL VASCULAR DISEASE N MUSCLE,JOINT OR BONE PROBLEMS N GASTROINTESTINAL BLEEDING N BLOOD CLOTS N ASTHMA N CATARACTS N ERECTILE DYSFUNCTION N VARICOSITIES N GI PROBLEMS N Low Testosterone N INFERTILITY N AIDS/HIV N CHEMOTHERAPY / RADIATION N LIVER DISEASE N MALE HYPOGONADISM N HYPERTENSION Y Deficiency N ANXIETY DISORDER N BLOOD TRANSFUSION N ANEMIA/BLOOD DISORDER N CHRONIC EAR INFECTIONS N BRONCHITIS N TUBERCULOSIS N GLAUCOMA N FOOT PROBLEM N DIVERTICULITIS N SLEEP APNEA N CHICKENPOX N INFECTIOUS DISEASE N PROSTATE N HEART ARRHYTHMIA N INSOMNIA N HIGH CHOLESTEROL / HYPERLIPIDEMIA Y HYPERTHYROIDISM N EYE PROBLEMS N NEUROLOGICAL PROBLEMS N EDEMA N CHRONIC PAIN SYNDROME N HYPOTHYROIDISM N CONSTIPATION N CAROTID BLOCKAGE N BACK / NECK PROBLEMS N HAVE YOU BEEN HOSPITALIZED OR SEEN IN [facility] IN THE PAST YEAR ? N ATHEROSCLEROSIS N BREAST PROBLEMS N DIALYSIS N ECZEMA N OSTEOPOROSIS N ARTHRITIS N NO SIGNIFICANT PAST MEDICAL HISTORY N APPENDICITIS N DIABETES, TYPE N BAD TEETH N ENT N HEARTBURN / REFLUX N AUTISM SPECTRUM DISORDER (ASD) N HEPATITIS / LIVER DISEASE N GOUT N SLEEP DISORDER N ALZHEIMER'S DISEASE N Brain Problems N HERPES N DEMENTIA N SEIZURES/EPILEPSY N HEADACHES/MIGRAINES N VASCULAR DISEASE N PACEMAKER N Blood Disorder N DIZZINESS N KIDNEY DISEASE N HEART DISEASE/HEART PROBLEMS N MULTIPLE SCLEROSIS N CARDIAC ARRHYTHMIA N CANCER: SPECIFY N Gall Stones N ATRIAL FIBRILLATION N PULMONARY EMBOLISM N AUTOIMMUNE DISEASE N Gynecological HistoryNo gynecological history recorded. Obstetrics History GPAL:G 0 P 0 0 0 0 Immunizations Vaccine Type Date Status Note Provider Nam e and Address Organization Details Recorded Time Pneumococcal conjugate PCV20, polysaccharide [id number] conjugate, adjuvant, PF 5 completed Carol Slecka null, [facility] 06/28/2024 08:44:37 Pneumococcal conjugate PCV20, polysaccharide [id number] conjugate, adjuvant, PF 5 completed Carol Slecka null, [facility] 06/25/2024 17:46:36 influenza, unspecified formulation 3 [facility] 10:55:10 influenza, unspecified formulation 4 completed Carol Slecka null, [facility] 12/10/2023 11:09:40 SARS-COV-2 (COVID-19) vaccine, UNSPECIFIED 4 completed [facility]/10[facility]2023 11:09:54 Respiratory syncytial virus (RSV) vaccine, unspecified 4 completed [facility]/10/2023 11:10:07 SARS-COV-2 (COVID-19) vaccine, UNSPECIFIED 1 completed Not Available [facility] 05/01/2022 14:17:14 SARS-COV-2 (COVID-19) vaccine, UNSPECIFIED 1 completed Not Available [facility] 05/01/2022 14:17:15 Influenza, high-dose, quadrivalent, PF 2 completed Not Available [facility] 05/01/2022 14:17:15 Influenza, high-dose, quadrivalent, PF 1 completed Not Available [facility] 05/01/2022 14:17:15 Past Encounters Encounter ID Performer Location Encounter Start Date Encounter Closed Date Diagnosis/Indication Diagnosis SNOMED-CT Code Diagnosis ICD10 Code Diagnosis Note [id number] Brad Olson MD [facility] Internal Med [facility] [address] [address] 06/08/2020 00:00:00 06/08/2020 11:25:34 [id number] Brad Olson MD [facility] Internal Med [facility] [address] [address] 12/07/2020 00:00:00 12/07/2020 15:44:59 [id number] Brad Olson MD [facility] Internal Med [facility] [address] [address] 06/07/2021 00:00:00 06/07/2021 10:39:32 [id number] Brad Olson MD [facility] Internal Med [facility] [address] [address] 12/06/2021 00:00:00 12/06/2021 10:43:07 [id number] Brad Olson MD [facility] Internal Med [facility] [address] [address] 06/06/2022 10:47:48 06/06/2022 11:29:51 Essential hypertension 25980921 I10 Hyperlipidemia 78098583 E78.5 Gastroesop hageal reflux disease 118402793 K21.9 Osteopenia 064338594 M85 .80 [id number] Brad Olson MD [facility] [address] [address] 12/05/2022 10:41:42 12/05/2022 11:10:17 Essential hypertension 71092639 I10 Hyperlipidemia 97879967 E78.5 Gastroesop hageal reflux disease 931112298 K21.9 Obese class II 833128359 1 85297 E66.9 Vitamin D deficiency 347 32427 E55.9 [id number] Brad Olson MD [facility] Internal Med [facility] [address] [address] 06/05/2023 10:39:45 06/05/2023 11:36:25 Essential hypertension 06346523 I10 Hyperlipidemia 64488666 E78.5 Obese class II 437271800 1 23567 E66.9 Piriformis syndrome 1291 11876 G57.03 Gastroesop hageal reflux disease 045159082 K21.9 Vitamin D deficiency 347 76977 E55.9 [id number] Brad Olson MD [facility] Internal [facility] [address] [address] 12/10/2023 11:08:01 12/10/2023 11:23:22 Adult health examination 726563641 Z00.00 Screening for disorder 711310927 Z13.9 Essential hypertension 88487990 I10 Gastroesop hageal reflux disease 374235773 K21.9 Obese class II 402476895 1 53453 E66.9 Hyperlipidemia 96085948 E78.5 Vitamin D deficiency 347 05873 E55.9 [id number] Brad Olson MD [facility] Internal [facility] [address] [address] 06/09/2024 10:39:39 06/09/2024 11:03:01 Essential hypertension 36861052 I10 Hyperlipidemia 56342700 E78.5 Senile osteoporosis 1804 0001 M81.0 Obese class II 951364561 1 00092 E66.9 Gastroesop hageal reflux disease 586845648 K21.9 Health Concerns Section Related Observation LastModified by Organization Detai ls LastModified Time None Recorded Concern Status LastModified by Organization Details LastModified Time None Recorded Advance Directives Directive N: Payers Insurance Date Sequence Insurance Name Policy Number Policy Casiano Covered Member ID Casiano Member ID Guarantor Name 06/09/2024 2 [place] Hi Pryor [id number] Hi Pryor 06/09/2024 2 [employer] (MEDICARE SUPPLEMENT) PLAN N Hi Pryor [id number] Hi Pryor 06/25/2024 1 [facility] (MEDICARE REPLACEMENT/A DVANTAGE - HMO) [id number] Hi Pryor [id number] Hi Pryor Notes Date Note Type Note Provider Name and Address Organization Details Recorded Time 06/07/19 23 text/htm l Patient Name: Hi PryorDate Of Service: June ( 06.06.2022 ): 1955 Age: 67 There has been approximately a 2 lb weight loss since 12/06/2021. This represents approximately a 1.0% change in weight. Weight change attributable to lifestyle changes. Vital Signs:Blood Pressure: Sitting Rt. Arm 142/78Pulse: Sitting 99 /min and RegularRespirations: 12Height 59.5 in or 1.5 mWeight 193 lb or 87.5 kgBMI 38.3Temperature: 97 F or 36.1 CPulse Oximetry: 94 % at rest on no oxygen Chief Complaint: Addressed in HPI Problems or conditions discussed in the HPI were the only ones reviewed during the encounter.Only social and family history addressed in the HPI were reviewed during this encounter. Attendant(s): None Constitutional and Systemic Symptoms: none Medication Reconciliation: from medication list. History of Present Illness #1. Essential Hypertension: Stage: Stage I Interval Neurological Complaints no headaches, dizziness, weakness, visual changes, ataxia, aphasia and apraxia. No shortness of breath, orthopnea or cardiovascular symptoms. No other symptoms related to end organ damage. Pressure has been under excellent control. Currently normal. No other end organ symptoms or findings. Therapy reviewed regarding management of hypertension and includes weight loss and Zestoretic. #2. Type II Hypercholesterolaemia: Currently taking medication and tolerating well. No interval complaints of any muscle pain or arthralgia. No significant liver changes with medications. Last lipid panel: fair control. Therapy reviewed regarding treatment of cholesterol management and include diet and Crestor. #3. Hx of esophageal reflux currently stable. Hx of Complications: none The severity, duration and intensity of symptoms have improved. Frequency: most meals Treatment consists medications taken on intermittent basis. Current therapy includes Omeprazole. There has been no nausea, eructation, vomiting, hematemesis, dysphagia and velopharyngeal insufficiency. No change in he frequency or intensity of symptoms. Has had no melena. Has had no hematemesis. Discuss the possibility of trying to reduce the frequency of the use of any PPI inhibitors or H2 antagonist to see if symptoms can be controlled with last intensive therapy #4. osteopenia. No new complaints of any additional back,hip or other musculoskeletal complaints related to the osteoporosis. No hx of any recent trauma. Currently taking OsCal-D. Has showed osteopenia. The FRAX Score for Hip Fracture is < 3% FRAX score for major fractures < 20%Medication List Reviewed and Reconciled 06/06/2022Zestoretic 12.5 MG-20 MG (TABLET - ORAL) One BidOmeprazole 40 MG (CAPSULE, DELAYED REL PELLETS - ORAL) Once DailyCrestor 5 MG (TABLET - ORAL) One DailyMetamucil DailyVitamin B12 500 MCG DailyVitamin D D3 1000 IU DailyAleve One Twice A Day As NeededCalcium Carbonate 600 MG Once DailyADRs List Reviewed 06/06/2022Lipitor Muscle PainSimvastatin Muscle PainVaccination and Miimvrrjzytp9557-77 Tyxwjyyav7818-05 Covid Booster Adnqbx4181-14 Covid 19 Armaan & H3162-59 Pneumovax 621951-50 Prevnar 13Surgical HistoryCold cone, Cholecystectomy and appenedectomyPreventative Testing Confirmed by Our Cfyihte1412/21/2021 DEXA SCAN12/10/2021 ALBUMIN 4.7 G/DL H008/20/2021 MAMMOGRAM HAIC 5.4 %06/15/2018 COLONOSCOPY (5 YEARS) 06/16/2023Social HistorySOCIAL HISTORY:Marital Status: MarriedSmoking Hx: .5 packs of cigarettes per day for 20 years. Drinking Hx: > 30 oz cans of soft drinks per day.Exercise: InfrequentlySexual Hx: Sexually ActiveOccupation: Factory WorkerFamily HistoryFAMILY HISTORY:Mother 75 years oldFather 72 years old2 Brothers 1 Living3 Sisters 2 LivingMother Hx: DM, HTN, Ca of ColonFather Hx: Ca of ProstateBrother Hx: ASHD (1)Sisters Ca of Breast (1) CAD(1) Brad Olson MD [address] [facility], [facility] [address], [place], [address], [place] [facility] Infusion Resource 06/06/2022 11:27:20 12/06/19 23 text/htm l Patient Name: Hi Colmenares Of Service: December ( 12.05.2022 ): 1955 Age: 67 Vital Signs:Blood Pressure: Sitting Rt. Arm 132/78Pulse: Sitting 95 /min and RegularRespiratory Rate: 12Height 60 in or 1.5 mWeight 194 lb or 88.0 kgBMI 37.9Temperature: 97 F or 36.1 CPulse Oximetry: 96 % at rest on no oxygen Chief Complaint: Addressed in HPI Problems or conditions discussed in the HPI were the only ones reviewed during the encounter.Only social and family history addressed in the HPI were reviewed during this encounter. Attendant(s): NoneConstitutional and Systemic Symptoms:none Medication Reconciliation: from medication list. History of Present Illness #1. Essential Hypertension: Stage: Stage I Interval Neurological Complaints no headaches, dizziness, weakness, visual changes, ataxia, aphasia and apraxia. No shortness of breath, orthopnea or cardiovascular symptoms. No other symptoms related to end organ damage. Pressure has been under excellent control. Currently normal. No other end organ symptoms or findings. Therapy reviewed regarding management of hypertension and includes salt restriction and Zestoretic. #2. Type II Hypercholesterolaemia: Currently taking medication and tolerating well. No interval complaints of any muscle pain or arthralgia. No significant liver changes with medications. Last lipid panel: excellent control. Therapy reviewed regarding treatment of cholesterol management and include diet and Crestor. #3. Hx of esophageal reflux currently stable. Hx of Complications: none The severity, duration and intensity of symptoms have improved. Frequency: most meals Treatment consists medications taken on intermittent basis. Current therapy includes Omeprazole. There has been no nausea, eructation, vomiting, hematemesis, dysphagia, velopharyngeal insufficiency and odynophagia. No change in he frequency or intensity of symptoms. Has had no melena. Has had no hematemesis. Discuss the possibility of trying to reduce the frequency of the use of any PPI inhibitors or H2 antagonist to see if symptoms can be controlled with last intensive therapy #4. Hx of obesity. Currently Class 2 Obesity BMI 35-39.99. Has tried numerous dietary support and supplements with no benefit. Instructed on the health consequences of the obese status particularly cancer - diabetes and heart disease. Discussed new modalities of weight loss including GLP-1 medications that are used to treat diabetes. Potential candidate for bariatric surgery: No. Wishes to be evaluated by Dietary: No and was offered to be evaluated and instructed by bar helper on weight loss diet.Medication List Reviewed and Reconciled 12/05/2022Zestoretic 12.5 MG-20 MG (TABLET - ORAL) One BidOmeprazole 40 MG (CAPSULE, DELAYED REL PELLETS - ORAL) Once DailyCrestor 5 MG (TABLET - ORAL) One DailyMetamucil DailyVitamin B12 500 MCG DailyVitamin D D3 1000 IU DailyAleve One Twice A Day As NeededCalcium Carbonate 600 MG Once DailyADRs List Reviewed 12/05/2022Lipitor Muscle PainSimvastatin Muscle PainVaccination and Ismqjeugytrl9415-29 Xjpmdofjj2868-21 Hvhbkiyjj4105-03 Covid Booster Pdxunc9420-10 Covid 19 Armaan & D7273-79 Pneumovax 771454-56 Prevnar 13Surgical HistoryCold cone, Cholecystectomy and appenedectomyPreventative Testing Confirmed by Our Tzscvjl9309/16/2022 MAMMOGRAM ALBUMIN 4.3 G/DL12/21/2021 DEXA SCAN10/05/2018 HAIC 5.4 %06/15/2018 COLONOSCOPY (5 YEARS) 06/16/2023Social HistorySOCIAL HISTORY:Marital Status: MarriedSmoking Hx: .5 packs of cigarettes per day for 20 years. Drinking Hx: > 30 oz cans of soft drinks per day.Exercise: InfrequentlySexual Hx: Sexually ActiveOccupation: Factory WorkerFamily HistoryFAMILY HISTORY:Mother 75 years oldFather 72 years old2 Brothers 1 Living3 Sisters 2 LivingMother Hx: DM, HTN, Ca of ColonFather Hx: Ca of ProstateBrother Hx: ASHD (1)Sisters Ca of Breast (1) CAD(1) Brad Olson MD [address] [facility], [facility] [address], [place], [address], [place] [facility] [employer] 12/05/2022 11:03:53 06/05/19 24 text/htm l Patient Name: Hi Colmenares Of Service: June ( 06.05.2023 ): 1955 Age: 68 There has been approximately a 3 lb weight gain since 12/05/2022. This represents approximately a 1.5% change in weight. Weight change attributable to lifestyle changes. Vital Signs:Blood Pressure: Sitting Rt. Arm 132/78Pulse: Sitting 75 /min and RegularRespiratory Rate: 12Height 59 in or 1.5 mWeight 197 lb or 89.4 kgBMI 39.8Temperature: 97 F or 36.1 CPulse Oximetry: 98 % at rest on no oxygen Chief Complaint: Addressed in HPI Problems or conditions discussed in the HPI were the only ones reviewed during the encounter.Only social and family history addressed in the HPI were reviewed during this encounter. Attendant(s): NoneConstitutional and Systemic Symptoms:none Medication Reconciliation: from medication list. History of Present Illness #1. Essential Hypertension: Stage: Stage I Interval Neurological Complaints no headaches, dizziness, weakness, visual changes, ataxia, aphasia and apraxia. No shortness of breath, orthopnea or cardiovascular symptoms. No other symptoms related to end organ damage. Pressure has been under excellent control. Currently normal. No other end organ symptoms or findings. Therapy reviewed regarding management of hypertension and includes salt restriction and Zestoretic. #2. Type II Hypercholesterolaemia: Currently taking medication and tolerating well. No interval complaints of any muscle pain or arthralgia. No significant liver changes with medications. Last lipid panel: no testing done recently. Therapy reviewed regarding treatment of cholesterol management and include diet and Crestor. #3. Complains of bilateral lower back pain with radiation into the buttock into the tip area. Sounds very much like piriformis syndrome. No interval complaints any muscle weakness. There is some occasional numbness which is not a new finding. Has noticed increased symptomatology recently. Recently started on some glucosamine chondroitin sulfate as well as turmeric. Has shown some improvement. Will set up with some physical therapy for further evaluation and treatment.: #4. Hx of obesity. Currently Class 2 Obesity BMI 35-39.99. Has tried numerous dietary support and supplements with no benefit. Instructed on the health consequences of the obese status particularly cancer - diabetes and heart disease. Discussed new modalities of weight loss including GLP-1 medications that are used to treat diabetes. Potential candidate for bariatric surgery: No. Wishes to be evaluated by Dietary: No and was offered to be evaluated and instructed by bar helper on weight loss diet.#5. GERD clinically stable currently taking omeprazole 40 mg daily. No interval complaints of any increase in frequency, duration or intensity of any reflux symptomatology. Active Medication ListZestoretic 12.5 MG-20 MG (TABLET - ORAL) One BidOmeprazole 40 MG (CAPSULE, DELAYED REL PELLETS - ORAL) Once DailyCrestor 5 MG (TABLET - ORAL) One DailyMetamucil DailyVitamin B12 500 MCG DailyVitamin D D3 1000 IU DailyAleve One Twice A Day As NeededCalcium Carbonate 600 MG Once DailyTurmeric 400 MG Once DailyGlucosamine Chondrotin Sulfate 3081-5171 PLUS COLLEGEN Once Daily Adverse Drug Reactions ReviewedLipitor Muscle PainSimvastatin Muscle Pain Vaccination and [id number] [id number] Covid Booster Moqlkg8725-17 Covid 19 Armaan & Yqspzzg3715-71 Prevnar 13 Gc Surgical Hphqhkx6521-99 Cold mnhg5626-90 Cholecystectomy and appenedectomy Preventative Lspxkrh6912/09/2022 ALBUMIN 4.4 G/DL N009/16/2022 MAMMOGRAM 410/ DEXA SCAN10/05/2018 HAIC 5.4 % N006/15/2018 COLONOSCOPY (5 YEARS) 06/16/2023 Social HistorySOCIAL HISTORY:Marital Status: MarriedSmoking Hx: .5 packs of cigarettes per day for 20 years. Drinking Hx: > 30 oz cans of soft drinks per day.Exercise: InfrequentlySexual Hx: Sexually ActiveOccupation: Kitchen Helper Family HistoryFAMILY HISTORY:Mother 75 years oldFather 72 years old2 Brothers 1 Living3 Sisters 2 LivingMother Hx: DM, HTN, Ca of ColonFather Hx: Ca of ProstateBrother Hx: ASHD (1)Sisters Ca of Breast (1) CAD(1) Brad Olson MD [address] [facility], [facility] [address], [place], [address], [place] - [facility] [employer] 06/05/2023 11:29:43 12/10/19 24 text/htm l Patient Name: Hi Colmenares Of Service: Friday ( 12.10.2023 ): 1955 Age: 68 There has been approximately a 5 lb weight loss since 06/05/2023. This represents approximately a 2.5% change in weight. Weight change attributable to lifestyle changes. Vital Signs:Blood Pressure: Sitting Rt. Arm 180/90Pulse: Sitting 66 /min and RegularRespiratory Rate: 16Height 59 in or 1.5 mWeight 192 lb or 87.1 kgBMI 38.8Temperature: 97 F or 36.1 CPulse Oximetry: 99 % at rest on no oxygen Chief Complaint: Addressed in HPI Problems or conditions discussed in the HPI were the only ones reviewed during the encounter.Only social and family history addressed in the HPI were reviewed during this encounter. A significant, separate E/M service was performed to evaluate the current and new problems. Attendant(s): NoneConstitutional and Systemic Symptoms:none Medication Reconciliation: from medication list. History of Present Illness Reviewed the findings of the preventative health visit. Addressed all areas with the patient, patient's family or caregivers. Preventative examinations and testing immunizations - vaccinations, colonic neoplasm screening, mammograms and DEXA Scan all reviewed and ordered where patient was amenable to the recommendations. Cognitive function was normal. Depression addressed and where necessary medications were adjusted or instituted. End of life and living will briefly discussed with patient and where these can be filled out and legally executed. Other blood and imaging studies were ordered if considered necessary. Other recommendations may be found in the encounter note. #1. Essential Hypertension: Stage: Stage I Interval Neurological Complaints no headaches, dizziness, weakness, visual changes, ataxia, aphasia and apraxia. No shortness of breath, orthopnea or cardiovascular symptoms. No other symptoms related to end organ damage. Pressure has been under fair control. Currently elevated and instructed to recheck in office in two weeks. No other end organ symptoms or findings. Therapy reviewed regarding management of hypertension and includes salt restriction and Zestoretic. #2. Type II Hypercholesterolaemia: Currently taking medication and tolerating well. No interval complaints of any muscle pain or arthralgia. No significant liver changes with medications. Last lipid panel: fair control. Therapy reviewed regarding treatment of cholesterol management and include diet and Crestor. #3. Hx of esophageal reflux currently stable. Hx of Complications: none The severity, duration and intensity of symptoms have improved. Frequency: most meals Treatment consists medications taken on a regular basis. Current therapy includes Omeprazole. There has been no nausea, eructation, vomiting, hematemesis, dysphagia, velopharyngeal insufficiency and odynophagia. No change in he frequency or intensity of symptoms. Has had no melena. Has had no . Discussed use of H2 antagonists and the possibility of trying to reduce the frequency of the use of any PPI inhibitors and try H2 antagonists to see if symptoms can be controlled with lease intensive therapy since a number of complications are associated with chronic prolonged use of PPI inhibitors. #4. Hx of obesity. Currently Class 2 Obesity BMI 35-39.99. Has tried numerous dietary support and supplements with no benefit. Instructed on the health consequences of the obese status particularly cancer - diabetes and heart disease. Discussed other modalities of weight loss no . Potential candidate for bariatric surgery: No. Wishes to be evaluated by Dietary: No and was offered to be evaluated and instructed by bar helper on weight loss diet. Active Medication ListZestoretic 12.5 MG-20 MG (TABLET - ORAL) One BidOmeprazole 40 MG (CAPSULE, DELAYED REL PELLETS - ORAL) Once DailyCrestor 5 MG (TABLET - ORAL) One DailyMetamucil DailyVitamin B12 500 MCG DailyVitamin D D3 1000 IU DailyAleve One Twice A Day As NeededCalcium Carbonate 600 MG Once DailyTurmeric 400 MG Once DailyGlucosamine Chondrotin Sulfate 6984-9818 PLUS COLLEGEN Once Daily Adverse Drug Reactions ReviewedLipitor Muscle PainSimvastatin Muscle Pain Vaccination and Immunization( ) 2023-11 INFLUENZA(X) 2018-03 PREVNAR 13 GC PREVNAR 20 Needed(X) 2018-03 PNEUMOVAX PREVNAR 20 Needed( ) 2020- COVID 19 ARMAAN & ARMAAN( ) 2023-11 COVID BOOSTER PFIZER( ) 2023-11 RSV Surgical [id number] Cold [id number] Cholecystectomy and appenedectomy Preventative Testing( ) 11/18/2023 Mammogram 11/17/2025( ) 06/09/2023 Albumin 4.4 G/DL( ) 12/21/2021 DEXA Scan 12/22/2023( ) 10/05/2018 HAIC 5.4 % N(X) 06/15/2018 Colonoscopy (5 Years) 06/16/2023 Social HistorySOCIAL HISTORY:Marital Status: MarriedSmoking Hx: .5 packs of cigarettes per day for 20 years. Drinking Hx: > 30 oz cans of soft drinks per day.Exercise: InfrequentlySexual Hx: Sexually ActiveOccupation: Kitchen Helper Family HistoryFAMILY HISTORY:Mother 75 years oldFather 72 years old2 Brothers 1 Living3 Sisters 2 LivingMother Hx: DM, HTN, Ca of ColonFather Hx: Ca of ProstateBrother Hx: ASHD (1)Sisters Ca of Breast (1) CAD(1) Brad Olson MD [address] [facility], [facility] [address], [place], [address], [place] [facility] [place] [employer] [facility] 12/10/2023 11:50:21 06/10/19 25 text/htm l Patient Name: Hi Colmenares Of Service: Friday ( 06.09.2024 ): 1955 Age: 69 There has been approximately a 5.5 lb weight gain since 12/10/2023. This represents approximately a 2.9% change in weight. Weight change attributable to lifestyle changes. Vital Signs:Blood Pressure: Sitting Rt. Arm 160/60Pulse: Sitting 84 /min and RegularRespiratory Rate: 16Height 59 in or 1.5 mWeight 197.5 lb or 89.6 kgBMI 39.9Temperature: 97 F or 36.1 CPulse Oximetry: 98 % at rest on no oxygen Chief Complaint: Addressed in HPI Problems or conditions discussed in the HPI were the only ones reviewed during the encounter.Only social and family history addressed in the HPI were reviewed during this encounter. Attendant(s): NoneConstitutional and Systemic Symptoms:none Medication Reconciliation: from medication list. History of Present Illness #1. Essential Hypertension: Stage: Stage I Interval Neurological Complaints no headaches, dizziness, weakness, visual changes, ataxia, aphasia and apraxia. No shortness of breath, orthopnea or cardiovascular symptoms. No other symptoms related to end organ damage. Pressure has been under excellent control. Currently normal. No other end organ symptoms or findings. Therapy reviewed regarding management of hypertension and includes salt restriction and Zestoretic. #2. Type II Hypercholesterolaemia: Currently taking medication and tolerating well. No interval complaints of any muscle pain or arthralgia. No significant liver changes with medications. Last lipid panel: fair control. Therapy reviewed regarding treatment of cholesterol management and include diet and Crestor. #3. Hx of esophageal reflux currently stable. Hx of Complications: none The severity, duration and intensity of symptoms have improved. Frequency: most meals Treatment consists medications taken on a regular basis. Current therapy includes Omeprazole. There has been no nausea, eructation, vomiting, hematemesis, dysphagia, velopharyngeal insufficiency and odynophagia. No change in he frequency or intensity of symptoms. Has had no melena. Has had no . Discussed use of H2 antagonists and the possibility of trying to reduce the frequency of the use of any PPI inhibitors and try H2 antagonists to see if symptoms can be controlled with lease intensive therapy since a number of complications are associated with chronic prolonged use of PPI inhibitors. #4. osteoporosis. No new complaints of any additional back,hip or other musculoskeletal complaints related to the osteoporosis. No hx of any recent trauma. Currently taking OsCal-D and Fosamax. Has has had a recent DEXA scan done within the last year. The FRAX Score for Hip Fracture is NA hx osteoporosis FRAX score for major fractures NA hx of osteoporosis #5. Hx of obesity. Currently Class 2 Obesity BMI 35-39.99. Has tried numerous dietary support and supplements with no benefit. Instructed on the health consequences of the obese status particularly cancer - diabetes and heart disease. Discussed other modalities of weight loss no . Potential candidate for bariatric surgery: No. Wishes to be evaluated by Dietary: No and was offered to be evaluated and instructed by bar helper on weight loss diet. Active Medication ListMultivitamin DailySlow-mag DailyZestoretic 12.5 MG-20 MG (TABLET - ORAL) One BidOmeprazole 40 MG (CAPSULE, DELAYED REL PELLETS - ORAL) Once DailyCrestor 5 MG (TABLET - ORAL) One DailyVitamin B12 500 MCG DailyVitamin D D3 1000 IU DailyAleve One Twice A Day As NeededCalcium Carbonate 600 MG Once DailyFosamax 70 MG TABLET Weekly Adverse Drug Reactions ReviewedLipitor Muscle PainSimvastatin Muscle Pain Vaccination and Immunization( ) 2023- INFLUENZA( ) 2018-03 PREVNAR 13 GC( ) 2018-03 PNEUMOVAX( ) 2020- COVID 19 ARMAAN & ARMAAN( ) 2023-11 COVID BOOSTER PFIZER( ) 2023-11 RSV( ) 2024-06 PREVNAR 20 Surgical Deartms1853-27 Cold [id number] Cholecystectomy and appenedectomy Preventative Testing( ) 12/22/2023 DEXA Scan 12/21/2025( ) 12/11/2023 Albumin 4.4 G/DL( ) 11/18/2023 Mammogram 11/17/2025( ) 08/04/2023 Colonoscopy ( 5 Years ) 08/03/2028( ) 10/05/2018 HAIC 5.4 % N Social HistorySOCIAL HISTORY:Marital Status: MarriedSmoking Hx: .5 packs of cigarettes per day for 20 years. Drinking Hx: > 30 oz cans of soft drinks per day.Exercise: InfrequentlySexual Hx: Sexually ActiveOccupation: Kitchen Helper Family HistoryFAMILY HISTORY:Mother 75 years oldFather 72 years old2 Brothers 1 Living3 Sisters 2 LivingMother Hx: DM, HTN, Ca of ColonFather Hx: Ca of ProstateBrother Hx: ASHD (1)Sisters Ca of Breast (1) CAD(1) Brad Oslon MD [address] [facility], [place] [address], [place], [address], [place] [facility] 06/09/2024 10:58:34 OBGyn Episode No OBEpisode recorded.
== END 2024-08-13 08:31 | disposition home or self-care (01) ==
PROVIDERS: PCP Internal Medicine; Visit Provider Internal Medicine
DX: R93.6 Abnormal findings on diagnostic imaging of limbs (principal); I73.9 Peripheral vascular disease, unspecified
CPT/HCPCS: 93925